=== PATIENT | female | born 1945 | race Caucasian/White ===

== ENCOUNTER 2020-01-17 07:25 | Outpatient (CLI) | payer MEDICARE, SELFPAY ==
--- NOTE | ~2020-01-17 | US_ITS ---
EXAMINATION: US venous doppler LE RT DATE: 01/17/2020 08:05 INDICATION: Right lower limb pain and swelling. TECHNIQUE: Grayscale ultrasound images without and with compression and Doppler ultrasound images of the right lower extremity veins were obtained. COMPARISON: Ultrasound 11/23/2017 FINDINGS: The visualized portions of right common femoral vein, profunda (deep) femoral vein, femoral vein, pop liteal vein, peroneal veins, posterior tibial veins, and greater saphenous vein outflow are patent. IMPRESSION: 1. No deep venous thrombosis. Reviewed, dictated and finalized at location E.
== END 2020-01-17 07:26 | disposition home or self-care (01) ==
PROVIDERS: PCP Family Medicine Adolescent Medicine; Visit Provider Family Medicine Adolescent Medicine
DX: M79.661 Pain in right lower leg (principal)
CPT/HCPCS: 93971

== ENCOUNTER 2020-02-27 00:13 | Emergency (ER) | payer MEDICARE, SELFPAY ==
--- NOTE | ~2020-02-27 | CT_ITS ---
EXAMINATION: CT abdomen pelvis w con EXAM DATE: 02/27/2020 01:33 INDICATION: History diverticulitis, left lower quadrant abdominal pain. TECHNIQUE: Spiral CT of the abdomen and pelvis was performed following intravenous injection of 100 m L Omnipaque 350. Axial, coronal and sagittal images were reviewed. The dose-length product (DLP) fo r this examination was 339.70 mGy-cm. The exposure was tailored according to patient size (auto mA e xposure control), and iterative reconstruction (ASIR) was used as additional dose reduction technique . There is no prior study for comparison. FINDINGS: The liver, spleen, adrenal glands and pancreas are unremarkable. There are gallstones with in an otherwise unremarkable gallbladder, including one which may be in the cystic duct measuring 4 m m. No evidence of obstructive biliary disease. Portal and splenic veins are patent. Kidneys enhanc e symmetrically. There is no hydronephrosis. The uterus is not identified and has likely been surg ically resected. The bladder is unremarkable. There is no retroperitoneal or pelvic lymphadenopathy . The appendix is not positively visualized. There is no pericecal inflammatory change to suggest appe ndicitis. There is moderate-sized gastroesophageal hiatal hernia. There is colonic fluid, correlate for diarrhea. There is possibility of mild sigmoid colitis. There is mild sigmoid colonic diverticul osis. There is no adjacent inflammatory change to suggest diverticulitis. No free intraperitoneal g as. The heart is normal in size. There are no pericardial or pleural effusions. The lung bases ar e unremarkable. There are no osteoblastic or osteolytic lesions identified. Moderate to severe lumba r spondylosis. IMPRESSION: 1. Possible sigmoid mild colitis. Colonic fluid, diarrhea. 2. Mild diverticulosis. 3. Cholelithiasis, probable cystic duct stone but no gallbladder distention. Reviewed, dictated and finalized at location B.
[2020-02-27 00:17] VITALS: BP 135/76; PULSE 87; RESP 18; TEMP 37.6; O2SAT 99
--- NOTE | 2020-02-27 00:31 | ED.ABDPAIN ---
HPI - Abdominal Pain General Chief Complaint: Abdominal Pain Stated Complaint: abd pain Time Seen by Provider: 02/27/20 00:27 Source: patient and EMS Mode of arrival: EMS Limitations: no limitations History of Present Illness HPI narrative: Patient is a 75-year-old female with a history of hypertension, hyperlipidemia, diverticulitis, who presents for evaluation of abdominal pain. Patient states she has pain in her left lower abdomen over the past 24 hours it has become severe and sharp. Patient reports radiation of the pain to the back. She denies fever, nausea, vomiting, chest pain or upper abdominal pain. Patient states she was recently prescribed ciprofloxacin and Flagyl by her primary care physician to treat diverticulitis which she has a history of. Patient states she has finished those prescriptions, but despite taking them, pain flared up yesterday into today. Patient also reports diarrhea throughout the day today, no blood present, no dark or tarry stool. Related Data Home Medications Medication Instructions Recorded Confirmed alprazolam 0.25 mg tablet 0.25 mg PO DAILY 07/03/19 01/22/20 atorvastatin 10 mg tablet 10 mg PO DAILY 07/03/19 01/22/20 escitalopram oxalate 5 mg tablet 5 mg PO DAILY 07/03/19 01/22/20 lisinopril 2.5 mg tablet 2.5 mg PO DAILY 07/03/19 01/22/20 diclofenac sodium 75 mg 75 mg PO BID 01/22/20 01/22/20 tablet,delayed release Allergies Allergy/AdvReac Type Severity Reaction Status Date / Time sulfamethoxazole Allergy Unknown Unknown Verified 02/27/20 00:22 trimethoprim Allergy Unknown Unknown Verified 02/27/20 00:22 Review of Systems Review of Systems: Narrative: CONSTITUTIONAL: Denies fever, chills, or sweats. ENT: Denies rhinorrhea, congestion, sore throat, or otalgia. CARDIOVASCULAR: Denies chest pain, palpitations, or edema. RESPIRATORY: Denies cough or dyspnea. GASTROINTESTINAL: Reports left-sided abdominal pain, denies vomiting, reports diarrhea GENITOURINARY: Denies dysuria or hematuria. SKIN: Denies rash or itching. MUSCULOSKELETAL: Reports left-sided back pain, denies joint pain, or myalgia. NEUROLOGIC: Denies headache, numbness, or weakness. [facility] Past Medical History Medical History Anxiety Depression High cholesterol History of basal cell carcinoma (BCC) Hypertension Surgical History Surgical History History of appendectomy History of knee surgery Left knee arthroscopy 2016 History of rhinoplasty History of tubal ligation Social History Social History Smoking status: Never smoker Alcohol intake: current Additional occupation/education comments: [employer] Gender identity (if verbalized by the patient): Female Exam Narrative: Exam Narrative: GENERAL: Awake, alert, conversant HEAD: Normocephalic, atraumatic. EYES: PERRLA and EOMI. ENT: Nares clear, no rhinorrhea or epistaxis. Mucous membranes moist. NECK: Supple. CHEST: No respiratory distress, breathing even and non labored HEART: Regular rate, sinus rhythm ABDOMEN: Mild distention, positive left lower quadrant tenderness, positive guarding, nonrigid EXTREMITIES: Normal range of motion. No edema. SKIN: Warm, dry, no rash. NEURO:No focal deficits. Alert and oriented x3 Course Vital Signs Vital signs: Vital Signs Temperature 37.6 C 02/27/20 00:17 Pulse Rate 87 02/27/20 00:17 Respiratory Rate 18 02/27/20 00:17 Blood Pressure 135/76 02/27/20 00:17 Pulse Oximetry 99 02/27/20 00:17 Temperature 37.6 C 02/27/20 00:17 Pulse Rate 82 02/27/20 02:12 Respiratory Rate 20 02/27/20 02:12 Blood Pressure 102/59 L 02/27/20 02:12 Pulse Oximetry 96 02/27/20 02:12 MDM - Abdominal Pain MDM Narrative Medical decision making narrative: Patient presented for evaluation of left lower quadrant abdom
[2020-02-27 00:32] LABS: Basophils Percent Auto 0.4 % (0.2-1.2); Eosinophils Absolute Auto 0.1 K/mm3 (0-0.3); Eosinophils Percent Auto 1.3 % (0-4.4); Hemoglobin 12.5 g/dL (12.0-15.0); Immature Granulocyte Absolute 0.02 K/mm3 (0.00-0.031); Immature Granulocyte Percent A 0.2 % (0-0.5); Lymphocytes Absolute Auto 1.77 K/mm3 (0.9-3.2); Lymphocytes Percent Auto 17.1 % (18.3-44.2); Mean Corpuscular HGB Conc 32.9 g/dl (32-36); Mean Corpuscular Hemoglobin 31.8 pg (26-34); Mean Corpuscular Volume 96.7 fl (80-100); Mean Platelet Volume 8.9 fl (7.4-10.4); Monocytes Absolute Auto 0.6 K/mm3 (0.1-0.6); Neutrophils Absolute Auto 7.8 K/mm3 (1.3-6.7); Platelet Count Result 321 k/mm3 (150-375); Red Blood Count 3.93 M/mm3 (4.2-5.4); Red Cell Distribution Width 12.8 % (11.5-14.5); White Blood Count 10.4 K/mm3 (4.5-10.0)
[2020-02-27] MEDS: MORPHINE SULFATE 4 MG/ML INJ IV PUSH (00:37)
[2020-02-27] MEDS: SODIUM CHLORIDE 0.9% IV 1,000 ML 999 ML IV CONT (00:37)
[2020-02-27 00:44] LABS: Alanine Aminotransferase 32 U/L (4-35); Albumin Level 4.3 g/dL (3.5-5.1); Alkaline Phosphatase 69 U/L (38-126); Aspartate Amino Transferase 47 U/L (14-36); Bilirubin,Total 0.5 mg/dL (0.2-1.3); Blood Urea Nitrogen 10 mg/dL (7-17); Calcium 8.8 mg/dL (8.4-10.2); Carbon Dioxide 24 mmol/L (22-30); Chloride 97 mmol/L (98-107); Estimated CRCL calculation 46 ml/min; Estimated Glomerular Filt Rate > 60; Glucose 109 mg/dL (65-105); Lipase 94 U/L (23-300); Potassium 3.7 mmol/L (3.4-5.0); Sodium 132 mmol/L (137-145)
--- NOTE | 2020-02-27 01:02 | PC.NURSE ---
STOOL AND URINE SAMPLE TO LAB AT THIS TIME. WALKED BY ZENON QUEZADA. URINE TUBED. PT CHANGED X2 OUT OF DEPENDS AND ON COMMODE. CALL LIGHT AT BEDSIDE, EDUCATED ON IT WHEN SHE IS READY TO GET OFF COMMODE.
[2020-02-27 01:12] LABS: Add Urine Microscopic? YES; Appearance Urine Clear (Clear); Bacteria Urine Trace /hpf; Bilirubin Urine Negative (Negative); Blood Urine 1+ (Negative); Color Urine Yellow (Yellow); Glucose Urine UA Negative (Negative); Ketones Urine Negative (Negative); Leukocyte Esterase Ur 1+ LEU/UL (Negative); Nitrate Urine Negative (Negative); Protein Urine Negative (Negative); RBC Urine 0-2 /hpf (0-2); Specific Grav Ur 1.011 (1.001-1.035); Squamous Epithelial Cell Urine Occasional /hpf (Few); Urobilinogen Urine Negative mg/dL (<2.0); WBC Urine 0-3 /hpf
--- NOTE | 2020-02-27 01:26 | PC.NURSE ---
Pt currently has been taking down to CT, by
[2020-02-27 02:12] VITALS: BP 102/59; PULSE 82; RESP 20; O2SAT 96
[2020-02-27 02:43] VITALS: BP 102/59; PULSE 72; RESP 18; O2SAT 100
== END 2020-02-27 02:43 | disposition home or self-care (01) ==
PROVIDERS: Emergency Provider Emergency Medicine; PCP Family Medicine Adolescent Medicine
DX: K52.9 Noninfective gastroenteritis and colitis, unspecified (principal); I10 Essential (primary) hypertension; E78.5 Hyperlipidemia, unspecified; F41.9 Anxiety disorder, unspecified; F32.9 Major depressive disorder, single episode, unspecified; Z85.828 Personal history of other malignant neoplasm of skin; K57.90 Diverticulosis of intestine, part unspecified, without perforation or abscess without bleeding; K80.20 Calculus of gallbladder without cholecystitis without obstruction
CPT/HCPCS: 36415; 74177; 80053; 81001; 83690; 85025; 87324; 96361; 96374; 99284; J2270; J7030; Q9967

== ENCOUNTER → 2020-09-03 14:33 | Outpatient (CLI) | payer MEDICARE, SELFPAY ==
--- NOTE | ~2020-09-03 | XR_ITS ---
XR finger 3rd LT min 2V DATE: 09/03/2020 14:47 INDICATION: Crush injury, left proximal phalanx pain TECHNIQUE: 4 views COMPARISON: None FINDINGS: No fracture or dislocation, periosteal reaction or bone destruction, radiopaque soft tissue foreign body or subcutaneous emphysema. IMPRESSION: No fracture or dislocation Reviewed, dictated and finalized at location B. 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
== END ==
PROVIDERS: PCP Family Medicine Adolescent Medicine; Visit Provider Physician Assistant
DX: M79.645 Pain in left finger(s) (principal)
CPT/HCPCS: 73140

== ENCOUNTER 2021-01-21 09:30 | Outpatient (RCR) | payer MEDICARE, SELFPAY ==
--- NOTE | 2020-12-24 09:13 | OTOPEVAL ---
OCCUPATIONAL THERAPY INITIAL EVALUATION: 12/24/2020 Thank you for referring Gricelda Sawant to [facility] [place][Note 2].? The patient is scheduled to be seen for skilled occupational therapy? 2x/week for 4 weeks. Please review, sign, date and return this plan of care BISHOP. I agree with and certify that the following plan of care is medically necessary. Referring Physician Date Attending Provider: Jayson Miranda MD *OT Outpatient Evaluation Start: 12/24/20 07:39 Freq: Status: Active Protocol: Document 12/24/20 07:55 KJL (Rec: 12/24/20 09:13 KJL [email or web address]) Therapy Assessment Status Assessment Status Assessment Status Evaluation Evaluation Information Problem Onset September 03, 2020 Additional Evaluation Detail Patient reports on September 03, 2020 picked up a box of cat litter and dropped it reaching L hand out to catch the box and it bent L long finger back resulting in pain and bruising. There is no acute fracture or dislocation of L long finger. Subjective Information Patient reports is left handed Query Text:As Reported By Patient/ and many daily tasks have Family been difficult to perform including opening doors, drawers, writing, gripping/ grasping items with dominant hand since finger has been injured. Patient reports since being prescribed medication at MD last week, finger has decreased pain from 10/10 at the highest to 4/10 at the highest. Prior Level of Function Activity Level (Last 3 Months) Occupation [employer] Dominance Left Activity of Daily Living Ability Independent Indoor/Home Mobility Independent Community Mobility Independent Stairs Ability Independent Functional Cognition (Planning, Shopping Independent , Taking Medications) Cooking Yes Cleaning Yes Laundry Yes Shopping Yes Driving Yes Home Setting Home Type House,Single Level Environmental Barriers Stairs, Greater than 4 Living Situation Alone Support Available Local Family Support Mobility Assistive Devices (Used Last 3 None Months)
--- NOTE | 2021-01-21 10:13 | OTOPEVAL ---
OCCUPATIONAL THERAPY RE-EVALUATION AND D/C NOTE 01/21/21 Patient presents for outpatient OT re-evaluation following 6 sessions for left middle finger stiffness, weakness, and pain. ROM and strength have made excellent progress since the SOC which has facilitated return to use for ADL and work tasks with little to no pain. At this time the patient is ready for discharge with HEP to continue to work on strengthening and ROM of the left hand. Thank you for referring Gricelda Sawant to [facility].? Please review, sign, date and return this D/C Note BISHOP. I agree with and certify that the following plan of care is medically necessary. Referring Physician Date Referring Provider: Jayson Miranda MD *OT Outpatient Evaluation Start: 12/24/20 07:39 Freq: Status: Active Protocol: Document 01/21/21 09:28 BRAYAN (Rec: 01/21/21 09:58 BRAYAN [email or web address]) Therapy Assessment Status Assessment Status Assessment Status Re-evaluation Evaluation Information Problem Diagnosis Left middle finger stiffness Onset September 03, 2020 Additional Evaluation Detail Patient has participated in 6 outpatient OT sessions since . OT has been focusing on pain management, ROM, and strengthening. She is currently independent with all HEPs. Subjective Information Patient reports that she has Query Text:As Reported By Patient/ less pain and more functional Family use of the hand for ADL and work tasks. She reports improved ability to open drawers and write without pain or difficulty. 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 Patient reports that her ROM and putty exercises are more comfortable, rating pain at 2/ 10. She does report her pain gets down to 0/10 at rest. Pain Assessment Timing of Pain Assessment Timing of Pain Assessment Re-assessment Pain Scale Pain Scale Used Numeric (1 - 10) Self Report Pain Assessment Left Finger, Middle Reported Pain Level 0 Lowest Pain Intensity 0 Greatest Pain Intensity 4 Pain Score Pain Score 0: Self Report Upper Extremity Range of Motion Finger Range of Motion Left Reason Not Measured WNL/Right Mid
== END 2021-01-21 11:05 | disposition home or self-care (01) ==
LOC: ANHOT 09:30
PROVIDERS: PCP Family Medicine Adolescent Medicine; Visit Provider Orthopaedic Surgery
DX: M25.642 Stiffness of left hand, not elsewhere classified (principal)
CPT/HCPCS: 97018; 97035; 97110; 97140; 97165

== ENCOUNTER → 2021-02-04 16:42 | Outpatient (CLI) | payer MEDICARE, SELFPAY ==
--- NOTE | ~2021-02-04 | MM_ITS ---
EXAMINATION: MM screening [place] BI w rashmi HISTORY: Screening mammogram TECHNIQUE: Craniocaudal and mediolateral oblique 3-D tomosynthesis images were obtained and synthetic 2-D images were generated. CAD analysis was submitted and interpreted. COMPARISON: 05/24/2018, 09/04/2015 bilateral digital screening mammogram examinations BREAST PARENCHYMAL COMPOSITION: There are scattered areas of fibroglandular density. FINDINGS: Bilateral axillary tail lymph nodes. Scattered bilateral benign calcifications. There is no evidence of suspicious mass, calcification, or architectural distortion to suggest malignancy in eit her breast. There has been no suspicious interval change. IMPRESSION: 1. No mammographic evidence of malignancy. 2. Recommend routine screening mammography in one year. BI-RADS Category 2: Benign finding(s). Reviewed, dictated and finalized at location A.
== END ==
PROVIDERS: PCP Family Medicine Adolescent Medicine; Visit Provider Family Medicine Adolescent Medicine
DX: Z12.31 Encounter for screening mammogram for malignant neoplasm of breast (principal)
CPT/HCPCS: 77063; 77067

== ENCOUNTER 2021-06-29 21:31 | Observation (INO) | payer MEDICARE, SELFPAY ==
--- NOTE | ~2021-06-29 | US_ITS ---
EXAMINATION: US venous doppler LE EXAM DATE: 06/30/2021 10:09 INDICATION: Left leg pain and swelling. TECHNIQUE: Multiple grayscale, color flow and Doppler images of the lower extremity deep venous syste ms bilaterally were obtained and reviewed. Comparison is made to prior examination from 01/07/2020. FINDINGS: RIGHT SIDE Common femoral: -------- Normal. Profunda femoral: ------- Normal. Femoral: Normal. Popliteal: Normal. Posterior tibial: --------- Normal. Peroneal: Normal. Gastrocnemius: Not visualized. Soleus: Not visualized. Greater saphenous: ----- Normal. Lesser saphenous: ------ Not visualized. LEFT SIDE Common femoral: --------Thrombosed. Profunda femoral: -------Thrombosed. Femoral: Thrombosed. Popliteal: Thrombosed. Posterior tibial: ---------Thrombosed. Peroneal: Thrombosed. Gastrocnemius: Thrombosed. Soleus: Not visualized. Greater saphenous: ----- Normal. Lesser saphenous: ------ Not visualized. IMPRESSION: 1. Extensive left lower extremity DVT. 2. No right DVT. I discussed DVT with Nithya Emery MD at 06/30/2021 10:13 CDT. Reviewed, dictated and finalized at location A.
--- NOTE | ~2021-06-29 | CT_ITS ---
EXAMINATION: CTA [facility] DATE: 06/29/2021 23:12 INDICATION: Absent pulses in the left lower limb TECHNIQUE: Computed tomographic angiography (CTA) of the left lower extremity was performed with 150 mL Omnipaque 350 intravenous contrast. The dose-length product was mGy-cm. COMPARISON: None. FINDINGS: Small amount of atherosclerotic plaque with mild (<50%) stenosis at the left common femoral and popli teal arteries. Negligible plaque along the intervening left femoral artery. There is mild stenosis at the proximal anterior tibial artery runoff below the ankle. The posterior tibial artery is atretic t hroughout its course becoming indiscernible short distance above the ankle. The peroneal artery which is large in caliber throughout its course than the anterior tibial artery demonstrates runoff below the ankle where it appears to supply the distal posterior tibial artery below the level of the ankle. There is diffuse subcutaneous edema throughout the left lower limb. Mild diverticulosis along the vi sualized portion of the sigmoid colon. Bladder and visualized portion of the uterus are unremarkable. No free fluid in the pelvis. No pathologically enlarged left inguinal or left pelvic lymphadenopathy . Left posterior acetabular bone island. Bones are otherwise unremarkable. IMPRESSION: 1. Two-vessel runoff below the ankle with the larger peroneal artery providing supply to the level o f the ankle to the diffusely markedly atretic left posterior tibial artery. 2. Otherwise minimal to mild atherosclerotic disease primarily at the left common femoral, popliteal and proximal anterior tibial arteries. Reviewed, dictated and finalized at location A. IMPRESSION: 1. 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 2. Otherwise minimal to mild atherosclerotic disease primarily at the left comm on femoral, popliteal and proximal anterior tibial arteries.
--- NOTE | ~2021-06-29 | CT_ITS ---
EXAMINATION: CTA chest PE protocol DATE: 06/29/2021 23:58 INDICATION: Shortness of breath TECHNIQUE: Computed tomography angiography (CTA) of the chest was performed with 100 mL Omnipaque-350 intravenous contrast timed to evaluate the pulmonary arteries. Coronal maximum intensity projection 3D-reconstructions were created by the technologist. Automated exposure control and iterative reconst ruction technique were employed. Exam dose: 393.10 mGy-cm total exam DLP. COMPARISON: 01/26/2016 CT pulmonary scan FINDINGS: There is diagnostic contrast enhancement of the pulmonary arteries and no evidence of pulmo nary embolism. Normal heart size. There is coronary artery calcification. No pericardial or pleural effusion. No thoracic aortic aneurysm or dissection. 3.5 mm left apical soft tissue nodule. There is left posterior basilar lower lobe atelectasis or scarring. There is minimal bilateral lower lobe dependent atelectasis otherwise. No pulmonary consolidation. There is a small sliding hiatal hernia. There are numerous stones in the dependent aspect of the gallbladder. Normal morphology of the adrenal glands. Degenerative changes of the thoracic and lumbar spine. No suspicious osteolytic or osteoblastic lesio ns. IMPRESSION: No evidence of pulmonary embolism Mild atelectasis in the lower lobes, left greater than right Cholelithiasis Small sliding hiatal hernia Reviewed, dictated and finalized at Location A. Reviewed, dictated and finalized at location A.
[2021-06-29 21:46] VITALS: BP 152/97; PULSE 104; RESP 22; TEMP 37.1; O2SAT 100
[2021-06-29 22:17] VITALS: BP 135/93; PULSE 79; RESP 28; TEMP 36.8; O2SAT 99
--- NOTE | 2021-06-29 22:25 | ECG_ITS ---
Measurements Intervals [place] Rate: 73 P: 63 AL: 157 QRS: 31 QRSD: 97 T: 40 QT: 387 QTc: 427 Interpretive Statements SINUS RHYTHM BASELINE ARTIFACT- I, II, III, AVR, AVL, AVF, V1-V2 NORMAL ECG Electronically Signed On 06-30-2021 6:43:16 CDT by Alfonzo Wall D.O.
--- NOTE | 2021-06-29 22:30 | ED.LOWEXIN ---
HPI - Extremity Injury (Lower) General Chief Complaint: Extremity Injury, Lower Stated Complaint: L leg swelling/pain Time Seen by Provider: 06/29/21 22:14 Source: patient Mode of arrival: ambulatory Limitations: no limitations History of Present Illness HPI Narrative: 76-year-old female history of hypertension, arthritis, and high cholesterol with a DVT in the past arrives complaining of left lower extremity pain numbness and swelling worsened since this morning. 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 However the pain swelling and discoloration became much worse as the day went by and she was try to ambulate. Patient arrives with a left lower extremity swelling to the mid thigh dusky, tender with no DP pulse or pulses palpable. Patient also complains of chest pain worse with inspiration. Patient states history of DVT in the past also PE in the past. She states no history of PVD no CAD not currently on blood thinners. Related Data Home Medications Medication Instructions Recorded Confirmed alprazolam 0.25 mg tablet 0.25 mg PO DAILY 07/03/19 01/27/21 atorvastatin 10 mg tablet 10 mg PO DAILY 07/03/19 01/27/21 escitalopram oxalate 5 mg tablet 5 mg PO DAILY 07/03/19 01/27/21 lisinopril 2.5 mg tablet 2.5 mg PO DAILY 07/03/19 01/27/21 Allergies Allergy/AdvReac Type Severity Reaction Status Date / Time sulfamethoxazole Allergy Unknown Unknown Verified 06/29/21 22:48 trimethoprim Allergy Unknown Unknown Verified 06/29/21 22:48 Review of Systems Review of Systems: CONSTITUTIONAL: no fever, no weight loss, no confusion EYES: no vision changes, no eye pain ENT: no rhinorrhea, no sore throat, no difficulty swallowing CARDIOVASCULAR: pleuritic chest pain, chest pain, LLE edema, pain, discoloration, no palpitations RESPIRATORY: no cough, no shortness of breath, no hemoptysis GASTROINTESTINAL: no abdominal pain, no nausea, no vomiting, no diarrhea GENITOURINARY: no flank pain, no dysuria, no hematuria SKIN: no rash, no jaundice MUSCULOSKELETAL: no back pain, no trauma. NEUROLOGIC: No headache, no dizziness, no focal weakness PSYCHIATRIC: No hallucinations, no suicidal ideation PMFSH Past Medical History Medical History (Updated 06/30/21 @ 04:21 by Gaby Camacho MD) Anxiety BMI 23.0-23.9, adult Depression High cholesterol History of basal cell carcinoma (BCC) Hypertension Surgical History Surgical History History of appendectomy History of knee surgery Left knee arthroscopy 2016 History of rhinoplasty History of tubal ligation Family History Family History Mother Family history of heart disease in male family member before age 55 Father Family history of heart disease in male family member before age 55 Social History Social History Smoking status: Never smoker Alcohol intake: current Additional occupation/education comments: [employer] Gender identity (if verbalized by the patient): Female Exam Narrative: General: alert, afebrile, answering all questions appropriately Head: normocephalic, atraumatic Eyes: EOMI bilaterally, anicteric, no injection ENT: moist mucous membranes, oropharynx patent, no rhinorrhea Neck: supple, trachea midline, no JVD Chest: equal chest rise bilaterally, no chest wall trauma noted Lungs: clear to auscultation bilaterally, respirations labored CV: regular rate, no EZIO B, calf size equal bilaterally Abd: soft, non-distended, non-tender, no rebound, no gaurding, negative Acevedo's : no CVA tenderness B, bladder non-distended Back: no lumbar bony tenderness. 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
--- NOTE | 2021-06-29 22:43 | PC.NURSE ---
Access obtained by RN. ALO Matthew aware
[2021-06-29] MEDS: fentaNYL CITRATE INJ (*CRX) 100 MCG/2 ML VIAL 50 MCG IV PUSH (22:44)
[2021-06-29] MEDS: SODIUM CHLORIDE 0.9% IV 1,000 ML 999 ML IV CONT (22:44)
[2021-06-29 22:52] LABS: Basophils Percent Auto 0.2 % (0.2-1.2); Eosinophils Absolute Auto 0.3 K/mm3 (0-0.3); Eosinophils Percent Auto 2.2 % (0-4.4); Hematocrit 38.9 % (37.0-47.0); Hemoglobin 12.7 g/dL (12.0-15.0); Immature Granulocyte Absolute 0.04 K/mm3 (0.00-0.031); Immature Granulocyte Percent A 0.3 % (0-0.5); Lymphocytes Absolute Auto 2.63 K/mm3 (0.9-3.2); Lymphocytes Percent Auto 21.6 % (18.3-44.2); Mean Corpuscular HGB Conc 32.6 g/dl (32-36); Mean Corpuscular Hemoglobin 32.7 pg (26-34); Mean Corpuscular Volume 100.3 fl (80-100); Mean Platelet Volume 8.9 fl (7.4-10.4); Monocytes Percent Auto 8.2 % (2.6-8.5); Neutrophils Absolute Auto 8.2 K/mm3 (1.3-6.7); Neutrophils Percent Auto 67.5 % (45.5-73.1); Platelet Count Result 276 k/mm3 (150-375); Red Blood Count 3.88 M/mm3 (4.2-5.4); Red Cell Distribution Width 13.1 % (11.5-14.5); White Blood Count 12.2 K/mm3 (4.5-10.0)
[2021-06-29 23:06] LABS: INR 0.9; Prothrombin Time 12.1 Seconds (11.1-14.7)
[2021-06-29 23:07] LABS: Partial Thromboplastin Time 25.2 SECONDS (22.3-36.8)
--- NOTE | 2021-06-29 23:15 | PC.NURSE ---
Pt had episode where her teeth began to chatter, and her whole body shivered. Pt encouraged to breathe, vitals remained stable. MD aware. Pt able to calm down and returned to normal. Extremity elevated, cold cloth on head, and positive reinforcement. No new orders at this time. Of note, patient received Pfizer COVID booster today. States leg was red and had pain prior to receiving booster. aware.
[2021-06-29 23:35] LABS: Troponin I < 0.012 ng/mL (0.000-0.034)
[2021-06-29 23:43] LABS: Alanine Aminotransferase 26 U/L (4-35); Albumin Level 4.9 g/dL (3.5-5.1); Alkaline Phosphatase 75 U/L (38-126); Anion Gap 13 mmol/L (8-16); Aspartate Amino Transferase 41 U/L (14-36); Bilirubin,Total 1.1 mg/dL (0.2-1.3); Blood Urea Nitrogen 20 mg/dL (7-17); Calcium 9.9 mg/dL (8.4-10.2); Carbon Dioxide 25 mmol/L (22-30); Chloride 104 mmol/L (98-107); Estimated CRCL calculation 36 ml/min; Estimated Glomerular Filt Rate 49; Glucose 119 mg/dL (65-110); Lipase 106 U/L (23-300); Potassium 5.2 mmol/L (3.4-5.0); Sodium 142 mmol/L (137-145)
[2021-06-30] VITALS (19 sets, daily range): BP systolic 99–139; BP diastolic 62–85; PULSE 65–86; RESP 13–24; TEMP 36.1–37; O2SAT 94–99
[2021-06-30] MEDS: LACTATED RINGERS 1,000 ML 999 ML IV CONT (00:03)
[2021-06-30] MEDS: HEPARIN SODIUM 5,000 UNITS/ML VIAL 5500 UNITS IV PUSH (00:47)
[2021-06-30 01:45] LABS: Reflex Lactic Acid Yes or No Add Lactic
[2021-06-30] MEDS: HEPARIN SOD/D5W 100 UNITS/ML 25,000 UNITS/250 ML BAG 12 UNITS IV CONT ×2 (01:47→21:48)
[2021-06-30 02:08] LABS: Add Urine Microscopic? YES; Appearance Urine Clear (Clear); Bilirubin Urine Negative (Negative); Blood Urine Negative (Negative); Color Urine Straw (Yellow); Glucose Urine UA Negative (Negative); Ketones Urine Negative (Negative); Leukocyte Esterase Ur Trace LEU/UL (Negative); Mucus Urine Rare /lpf; Nitrate Urine Negative (Negative); Protein Urine Negative (Negative); RBC Urine 0-2 /hpf (0-2); Squamous Epithelial Cell Urine Moderate /hpf (Few); Urobilinogen Urine Negative mg/dL (<2.0)
[2021-06-30 02:09] LABS: Specific Grav Ur 1.058 (1.001-1.035)
[2021-06-30 02:09] LABS: Lactic Acid 2.1 mmol/L (0.7-2.1)
--- NOTE | 2021-06-30 05:01 | ADMGEN ---
This patient, Gricelda Sawant, was admitted to IMU Room 212-01. Patient/family oriented to hospital policies and general routines including ID bracelet, bed and alarms, visiting hours, pain management, procedures, bathroom and other care routines, personal items, smoking policy, room service/diet, and visiting hours. Information on how to activate the Rapid Response Team has been discussed. Patient/Family are encouraged to report perceived risks to care and to ask questions if they do not understand what they are told or what they should do.
[2021-06-30 06:05] LABS: Basophils Percent Auto 0.3 % (0.2-1.2); Eosinophils Absolute Auto 0.3 K/mm3 (0-0.3); Hematocrit 33.6 % (37.0-47.0); Immature Granulocyte Absolute 0.04 K/mm3 (0.00-0.031); Immature Granulocyte Percent A 0.4 % (0-0.5); Lymphocytes Absolute Auto 3.08 K/mm3 (0.9-3.2); Lymphocytes Percent Auto 33.2 % (18.3-44.2); Mean Corpuscular HGB Conc 32.7 g/dl (32-36); Mean Corpuscular Hemoglobin 32.6 pg (26-34); Mean Corpuscular Volume 99.7 fl (80-100); Mean Platelet Volume 8.9 fl (7.4-10.4); Monocytes Absolute Auto 0.8 K/mm3 (0.1-0.6); Monocytes Percent Auto 8.7 % (2.6-8.5); Neutrophils Percent Auto 54.4 % (45.5-73.1); Platelet Count Result 223 k/mm3 (150-375); Red Blood Count 3.37 M/mm3 (4.2-5.4); White Blood Count 9.3 K/mm3 (4.5-10.0)
[2021-06-30 06:11] LABS: Prothrombin Time 13.2 Seconds (11.1-14.7)
[2021-06-30 06:13] LABS: Partial Thromboplastin Time 81.5 SECONDS (22.3-36.8)
[2021-06-30 08:57] LABS: Lactic Acid Reflex 1.7 mmol/L (0.7-2.1)
[2021-06-30 08:59] LABS: Alanine Aminotransferase 21 U/L (4-35); Alkaline Phosphatase 80 U/L (38-126); Anion Gap 7 mmol/L (8-16); Aspartate Amino Transferase 25 U/L (14-36); Bilirubin,Total 0.9 mg/dL (0.2-1.3); Blood Urea Nitrogen 14 mg/dL (7-17); Calcium 9.2 mg/dL (8.4-10.2); Carbon Dioxide 25 mmol/L (22-30); Chloride 105 mmol/L (98-107); Estimated CRCL calculation 48 ml/min; Estimated Glomerular Filt Rate > 60; Glucose 114 mg/dL (65-110); Potassium 3.9 mmol/L (3.4-5.0); Sodium 137 mmol/L (137-145)
[2021-06-30] MEDS: ATORVASTATIN 10 MG TABLET PO (09:08)
[2021-06-30] MEDS: ESCITALOPRAM OXALATE 10 MG TABLET 20 MG PO (09:08)
[2021-06-30] MEDS: MORPHINE SULFATE (*CRX) 2 MG/ML INJ 1 MG IV PUSH (10:35)
--- NOTE | 2021-06-30 12:46 | PM.IMHP ---
H&P: HPI History of Present Illness Date/Time: 06/30/21 12:46 Chief Complaint: Left lower extremity swelling Narrative: 76-year-old female with past medical history significant for hypertension, hyperlipidemia and arthritis with a prior history of provoked left lower extremity DVT post orthopedic surgery, presented with left lower extremity swelling and tenderness for the past 2 days. Patient reports that she was working in her backyard Monday when she thinks she may have overworked herself busy and started experiencing some pain in her left calf. She proceeded on to go to work the next day however when she came back home Monday she started experiencing worsening swelling and pain over the left lower extremity. Her job involves standing or sitting for long periods of time. She has not had any long drives or long airplane travels recently. He has not gone to any sort of surgery she has not had any family history of any such disorder as well. She is not on any blood thinners. She denies any fever, chills, nausea, vomiting, shortness of breath, chest pain. In the ED a CT angio was done of the chest which did not reveal any findings for PE. Review of Systems Review of Systems: Ten point review systems conducted was otherwise negative [facility] Past Medical History Medical History (Updated 06/30/21 @ 13:05 by Nithya Emery MD) Anxiety BMI 23.0-23.9, adult Depression High cholesterol History of basal cell carcinoma (BCC) Hypertension Surgical History Surgical History History of appendectomy History of knee surgery Left knee arthroscopy 2016 History of rhinoplasty History of tubal ligation Family History Family History Mother Family history of heart disease in male family member before age 55 Thyroid disease Father Family history of heart disease in male family member before age 55 Sibling Graves disease Hypercholesteremia Heart disease Social History Social History Smoking status: Never smoker Alcohol intake: current Drinks per week: 1 Substance use: never Additional occupation/education comments: [employer] Gender identity (if verbalized by the patient): Female Spiritual care concerns: No Meds Home Medications and Allergies Home Medications Medication Instructions Recorded Confirmed Type alprazolam 0.25 mg tablet 0.5 mg PO HS 07/03/19 06/30/21 History atorvastatin 10 mg tablet 10 mg PO DAILY 07/03/19 06/30/21 History escitalopram oxalate 5 mg tablet 20 mg PO DAILY 07/03/19 06/30/21 History lisinopril 2.5 mg tablet 10 mg PO DAILY 07/03/19 06/30/21 History Allergies Allergy/AdvReac Type Severity Reaction Status Date / Time sulfamethoxazole Allergy Unknown Unknown Verified 06/29/21 22:48 trimethoprim Allergy Unknown Unknown Verified 06/29/21 22:48 Vital Signs Vital Signs - 24 hr 06/29/21 21:46 06/29/21 22:17 06/30/21 00:02 Temperature 98.8 F 98.2 F Pulse Rate 104 H 79 79 Respiratory Rate 22 H 28 H 17 Blood Pressure 152/97 H 135/93 H 99/85 L Pulse Oximetry 100 99 98 06/30/21 01:34 06/30/21 04:15 06/30/21 05:17 Temperature 98.4 F Pulse Rate 76 71 66 Respiratory Rate 16 13 18 Blood Pressure 109/62 107/62 139/69 Pulse Oximetry 96 96 99 06/30/21 06:00 06/30/21 08:08 06/30/21 12:23 Temperature 97.0 F L 98.6 F Pulse Rate 65 71 79 Respiratory Rate 24 H 18 Blood Pressure 111/62 128/71 Pulse Oximetry 97 96 Exam Narrative: General: alert, afebrile Head: normocephalic, atraumatic Eyes: EOMI bilaterally, anicteric ENT: moist mucous membranes, oropharynx patent, no rhinorrhea Neck: supple, trachea midline, no JVD Chest: equal chest rise bilaterally, no chest wall trauma noted Lungs: clear to auscultation bilaterally, respirations labored CV: regular rate, no EZIO B
[2021-06-30 13:26] LABS: Partial Thromboplastin Time 74.5 SECONDS (22.3-36.8)
[2021-06-30] MEDS: HYDROcodone/acetaminophen (*CRX) 5-325 MG TABLET 1 TAB PO ×2 (16:30→22:18)
[2021-06-30] MEDS: ALPRAZolam (*CRX) 0.5 MG TABLET PO (22:17)
--- NOTE | 2021-06-30 23:26 | PC.NURSE ---
I called daughter, Charisse, and let her know that her mother will be transferred to [facility] at approximately 2330 tonight. All questions answered.
--- NOTE | 2021-06-30 23:51 | PC.NURSE ---
Report called to Kesha HERNANDEZ at [facility]. Awaiting on ambulance for transport. Their ETA was 2330.
[2021-07-01] VITALS: BP 123/75; PULSE 76; PULSE 79; RESP 18; TEMP 36.6; O2SAT 95
--- NOTE | 2021-07-01 00:28 | PC.NURSE ---
EMS here for transport to [facility].
--- NOTE | 2021-07-18 23:11 | PM.TDS ---
Transfer Discharge Sum: Prov Provider Date of admission: 06/30/21 10:09 Primary care physician: Brain Overton MD Admitting clinician: Sadia Talavera MD Attending physician on admission: Nithya Emery Attending physician on discharge: Nithya Emery Discharging clinician: Nithya Emery DS: Admitting Diagnosis Discharge Date 07/01/21 Admitting Diagnosis Leg pain DS: Discharge Diagnosis Discharge Diagnosis (1) SALENA (acute kidney injury): Code(s): N17.9 - Acute kidney failure, unspecified Status: Resolved (2) Lactic acidosis: Code(s): E87.2 - Acidosis Status: Resolved (3) Elevated levels of transaminase & lactic acid dehydrogenase: Code(s): R74.01 - Elevation of levels of liver transaminase levels; R74.02 - Elevation of levels of lactic acid dehydrogenase [LDH] Status: Resolved (4) DVT (deep venous thrombosis): Qualifiers: Affected thrombotic vein of extremity: unspecified vein of extremity Chronicity: acute DVT location: lower extremity Laterality: left Qualified Code(s): I82.402 - Acute embolism and thrombosis of unspecified deep veins of left lower extremity Code(s): I82.409 - Acute embolism and thrombosis of unspecified deep veins of unspecified lower extremity Status: Acute Transfer Discharge Sum: Med Medications Active and Home Medications: Home Medications alprazolam 0.25 mg tablet 0.5 mg PO HS 07/03/19 [History Confirmed 06/30/21] atorvastatin 10 mg tablet 10 mg PO DAILY 07/03/19 [History Confirmed 06/30/21] escitalopram oxalate 5 mg tablet 20 mg PO DAILY 07/03/19 [History Confirmed 06/30/21] lisinopril 2.5 mg tablet 10 mg PO DAILY 07/03/19 [History Confirmed 06/30/21] alprazolam 0.5 mg PO HS tablet 07/01/21 [Rx] atorvastatin 10 mg PO DAILY tablet 07/01/21 [Rx] heparin (porcine) in 5 % dex 25,000 units CONTINUOUS IV INFUSION .[id number] ml 07/01/21 [Rx] Transfer Discharge Sum: Hosp Hospital Course Hospital course: 76-year-old female with past medical history significant for hypertension, hyperlipidemia and arthritis with a prior history of provoked left lower extremity DVT post orthopedic surgery, presented with left lower extremity swelling and tenderness for the past 2 days. Doppler ultrasound of the left lower extremity revealed extensive thrombosis. Spoke with vascular surgery attending Dr. Aguayo at [facility] and have accepted the patient to be transferred to vascular surgery. As per Dr. Du patient would need thrombectomy and is unlikely to get better on its own. Patient was continued heparin drip in the interim. Patient was transferred for higher level of care. Time Spent with Patient Time attestation: Total time spent providing and/or coordinating transfer services: Total time spent: Greater than 30 minutes Exam Narrative: General: alert, afebrile Head: normocephalic, atraumatic Eyes: EOMI bilaterally, anicteric ENT: moist mucous membranes, oropharynx patent, no rhinorrhea Neck: supple, trachea midline, no JVD Chest: equal chest rise bilaterally, no chest wall trauma noted Lungs: clear to auscultation bilaterally, respirations labored CV: regular rate, no EZIO B, calf size equal bilaterally Abd: soft, non-distended, non-tender, no rebound, no gaurding, negative Acevedo's : no CVA tenderness B, bladder non-distended Back: no lumbar bony tenderness. paraspinal muscles without spasm EXT: L lower ext: skin intact, swollen, erythematous, dusky from foot to mid thigh DP 1+ PT LIVESTOCK COUNTER; femoral 2+ bounding; no crepitus; APROM intact, no deformity Skin: warm, dry, no pallor Neuro: alert, oriented x 3; CN 2-12 grossly intact, no dysarthria Psych: Teary, appears upset.
== END 2021-07-01 00:15 | disposition short-term general hospital (02) ==
LOC: ANHED 06-30 00:47 → ANHIMU 06-30 07:23
PROVIDERS: Admitting Provider Internal Medicine; Emergency Provider Emergency Medicine; PCP Family Medicine Adolescent Medicine; Visit Provider Internal Medicine
DX: I82.402 Acute embolism and thrombosis of unspecified deep veins of left lower extremity (principal); M79.605 Pain in left leg; I10 Essential (primary) hypertension; E78.00 Pure hypercholesterolemia, unspecified; M19.90 Unspecified osteoarthritis, unspecified site; I73.9 Peripheral vascular disease, unspecified; R06.02 Shortness of breath; E78.5 Hyperlipidemia, unspecified; Z86.718 Personal history of other venous thrombosis and embolism; Z86.711 Personal history of pulmonary embolism
CPT/HCPCS: 36415; 71275; 73706; 80053; 81001; 83605; 83690; 83735; 84484; 85025; 85610; 85730; 93005; 93970; 96361; 96365; 96366; 96375; 99285; A9270; G0378; J1644; J2270; J3010; J7030; J7120; Q9967

== ENCOUNTER 2021-07-19 10:30 | Outpatient (CLI) | payer MEDICARE, SELFPAY ==
[2021-07-19 14:45] LABS: INR 3.3; Prothrombin Time 32.8 Seconds (11.1-14.7)
== END 2021-07-19 10:31 | disposition home or self-care (01) ==
LOC: ANHWCLAB 10:33
PROVIDERS: PCP Family Medicine Adolescent Medicine
DX: M79.605 Pain in left leg (principal)
CPT/HCPCS: 36415; 85610

== ENCOUNTER 2021-07-26 09:56 | Outpatient (CLI) | payer MEDICARE, SELFPAY ==
[2021-07-26 13:26] LABS: Hemoglobin 10.9 g/dL (12.0-15.0); Mean Corpuscular HGB Conc 32.1 g/dl (32-36); Mean Corpuscular Hemoglobin 32.1 pg (26-34); Mean Platelet Volume 9.5 fl (7.4-10.4); Platelet Count Result 425 k/mm3 (150-375); Red Cell Distribution Width 13.5 % (11.5-14.5); White Blood Count 6.4 K/mm3 (4.5-10.0)
[2021-07-26 13:34] LABS: Alanine Aminotransferase 23 U/L (4-35); Albumin Level 4.5 g/dL (3.5-5.1); Alkaline Phosphatase 80 U/L (38-126); Anion Gap 12 mmol/L (8-16); Aspartate Amino Transferase 24 U/L (14-36); Bilirubin,Total 0.4 mg/dL (0.2-1.3); Blood Urea Nitrogen 14 mg/dL (7-17); Calcium 9.9 mg/dL (8.4-10.2); Carbon Dioxide 22 mmol/L (22-30); Chloride 101 mmol/L (98-107); Estimated Glomerular Filt Rate > 60; Glucose 93 mg/dL (65-110); Potassium 4.5 mmol/L (3.4-5.0); Sodium 135 mmol/L (137-145)
[2021-07-26 13:37] LABS: INR 2.6; Prothrombin Time 27.5 Seconds (11.1-14.7)
== END 2021-07-26 09:57 | disposition home or self-care (01) ==
PROVIDERS: PCP Family Medicine Adolescent Medicine; Referring Provider Family Medicine Adolescent Medicine; Visit Provider Family Medicine Adolescent Medicine
DX: I82.412 Acute embolism and thrombosis of left femoral vein (principal)
CPT/HCPCS: 36415; 80053; 85027; 85610

== ENCOUNTER 2021-09-13 10:16 | Outpatient (RCR) | payer MEDICARE, SELFPAY ==
[2021-07-17 10:59] LABS: INR 2.9; Prothrombin Time 29.4 Seconds (11.1-14.7)
[2021-08-05 13:28] LABS: INR 2.5; Prothrombin Time 26.6 Seconds (11.1-14.7)
[2021-09-13 13:48] LABS: INR 2.4; Prothrombin Time 25.3 Seconds (11.1-14.7)
== END 2021-10-15 23:59 | disposition home or self-care (01) ==
LOC: ANHWCLAB 10:16
PROVIDERS: PCP Family Medicine Adolescent Medicine; Visit Provider Family Medicine Adolescent Medicine
DX: M79.605 Pain in left leg (principal)
CPT/HCPCS: 36415; 85610

== ENCOUNTER 2021-09-21 10:16 | Outpatient (CLI) | payer MEDICARE, SELFPAY ==
[2021-09-21 16:19] LABS: Hematocrit 37.8 % (37.0-47.0); Hemoglobin 12.1 g/dL (12.0-15.0); Mean Corpuscular Hemoglobin 31.9 pg (26-34); Mean Corpuscular Volume 99.7 fl (80-100); Mean Platelet Volume 9.4 fl (7.4-10.4); Platelet Count Result 329 k/mm3 (150-375); Red Blood Count 3.79 M/mm3 (4.2-5.4); Red Cell Distribution Width 13.9 % (11.5-14.5); White Blood Count 5.8 K/mm3 (4.5-10.0)
== END 2021-09-21 10:17 | disposition home or self-care (01) ==
LOC: ANHWCLAB 10:18
PROVIDERS: PCP Family Medicine Adolescent Medicine; Visit Provider Physician Assistant
DX: R06.02 Shortness of breath (principal)
CPT/HCPCS: 36415; 85027

== ENCOUNTER 2021-11-19 10:07 | Outpatient (RCR) | payer MEDICARE, SELFPAY ==
[2021-08-25 16:31] LABS: INR 3.1; Prothrombin Time 30.7 Seconds (11.1-14.7)
[2021-10-18 11:27] LABS: INR 3.4; Prothrombin Time 33.1 Seconds (11.1-14.7)
[2021-11-19 10:38] LABS: INR 1.9; Prothrombin Time 21.2 Seconds (11.1-14.7)
== END 2021-11-23 23:59 | disposition home or self-care (01) ==
LOC: ANHLAB 10:07
PROVIDERS: PCP Family Medicine Adolescent Medicine; Visit Provider Family Medicine Adolescent Medicine
DX: I82.412 Acute embolism and thrombosis of left femoral vein (principal); M79.605 Pain in left leg
CPT/HCPCS: 36415; 85610

== ENCOUNTER 2021-11-19 10:08 | Outpatient (CLI) | payer MEDICARE, SELFPAY ==
[2021-11-19 10:39] LABS: Hemoglobin A1C 5.8 % (<5.7)
[2021-11-19 10:41] LABS: Alanine Aminotransferase 23 U/L (4-35); Albumin Level 4.4 g/dL (3.5-5.1); Alkaline Phosphatase 65 U/L (38-126); Anion Gap 9 mmol/L (8-16); Aspartate Amino Transferase 27 U/L (14-36); Bilirubin,Total 0.2 mg/dL (0.2-1.3); Blood Urea Nitrogen 15 mg/dL (7-17); Calcium 8.9 mg/dL (8.4-10.2); Carbon Dioxide 25 mmol/L (22-30); Chloride 106 mmol/L (98-107); Cholesterol 242 mg/dL (0-200); Estimated Glomerular Filt Rate > 60; Glucose 102 mg/dL (65-110); HDL Direct 37 mg/dL; Sodium 140 mmol/L (137-145); Triglycerides 218 mg/dL (<150)
[2021-11-19 10:52] LABS: LDL Cholesterol Direct 138 mg/dL
== END 2021-11-19 10:09 | disposition home or self-care (01) ==
LOC: ANHLAB 10:10
PROVIDERS: PCP Family Medicine Adolescent Medicine; Visit Provider Physician Assistant
DX: R73.03 Prediabetes (principal); Z79.01 Long term (current) use of anticoagulants; E78.5 Hyperlipidemia, unspecified; I10 Essential (primary) hypertension
CPT/HCPCS: 36415; 80053; 80061; 83036; 85610

== ENCOUNTER 2022-03-11 08:19 | Outpatient (RCR) | payer MEDICARE, SELFPAY ==
[2021-12-23 16:48] LABS: INR 2.2; Prothrombin Time 23.4 Seconds (11.1-14.7)
[2022-01-20 16:24] LABS: INR 1.8; Prothrombin Time 20.4 Seconds (11.1-14.7)
[2022-02-22 12:51] LABS: INR 2.3; Prothrombin Time 24.2 Seconds (11.1-14.7)
[2022-03-11 09:32] LABS: Hematocrit 36.2 % (37.0-47.0); Mean Corpuscular HGB Conc 33.1 g/dl (32-36); Mean Corpuscular Hemoglobin 32.5 pg (26-34); Mean Corpuscular Volume 98.1 fl (80-100); Mean Platelet Volume 9.4 fl (7.4-10.4); Platelet Count Result 329 k/mm3 (150-375); Red Blood Count 3.69 M/mm3 (4.2-5.4); Red Cell Distribution Width 12.7 % (11.5-14.5); White Blood Count 6.3 K/mm3 (4.5-10.0)
[2022-03-11 09:47] LABS: Prothrombin Time 13.2 Seconds (11.1-14.7)
[2022-03-11 09:48] LABS: Alanine Aminotransferase 39 U/L (6-35); Albumin Level 4.4 g/dL (3.5-5.1); Alkaline Phosphatase 60 U/L (38-126); Anion Gap 7 mmol/L (8-16); Aspartate Amino Transferase 31 U/L (14-36); Bilirubin,Total 0.5 mg/dL (0.2-1.3); Blood Urea Nitrogen 10 mg/dL (7-17); Calcium 9.1 mg/dL (8.4-10.2); Carbon Dioxide 28 mmol/L (22-30); Chloride 105 mmol/L (98-107); Estimated Glomerular Filt Rate > 60; Glucose 91 mg/dL (65-110); Potassium 4.3 mmol/L (3.4-5.0); Sodium 140 mmol/L (137-145)
== END 2022-03-23 23:59 | disposition home or self-care (01) ==
LOC: ANHWCLAB 08:19
PROVIDERS: PCP Family Medicine Adolescent Medicine; Visit Provider Family Medicine Adolescent Medicine
DX: I82.412 Acute embolism and thrombosis of left femoral vein (principal)
CPT/HCPCS: 36415; 80053; 85027; 85610

== ENCOUNTER 2022-04-07 10:56 | Outpatient (CLI) | payer MEDICARE, SELFPAY ==
--- NOTE | ~2022-04-07 | US_ITS ---
EXAMINATION: US venous doppler [facility] DATE: 04/07/2022 12:03 INDICATION: Left lower limb pain. TECHNIQUE: Grayscale ultrasound images without and with compression and Doppler ultrasound images of the left lower extremity veins were obtained. COMPARISON: Ultrasound 06/30/2021 FINDINGS: The visualized portions of left common femoral vein, profunda (deep) femoral vein, popliteal vein, pe roneal veins, posterior tibial veins, and greater saphenous vein outflow are patent. There is thrombu s in left femoral vein. IMPRESSION: 1. Deep vein thrombosis involving left femoral vein. Reviewed, dictated and finalized at location A.
== END 2022-04-07 10:57 | disposition home or self-care (01) ==
LOC: ANHIMG 10:57
PROVIDERS: PCP Family Medicine Adolescent Medicine; Visit Provider Family Medicine Adolescent Medicine
DX: M79.605 Pain in left leg (principal); Z86.718 Personal history of other venous thrombosis and embolism; I82.412 Acute embolism and thrombosis of left femoral vein
CPT/HCPCS: 93971

== ENCOUNTER 2022-06-16 15:47 | Outpatient (RCR) | payer MEDICARE, SELFPAY ==
[2022-04-11 08:47] LABS: INR 4.1; Prothrombin Time 38.8 Seconds (11.1-14.7)
[2022-04-15 07:49] LABS: INR 1.7; Prothrombin Time 19.7 Seconds (11.1-14.7)
[2022-04-28 17:50] LABS: INR 2.6; Prothrombin Time 27.1 Seconds (11.1-14.7)
[2022-05-19 17:20] LABS: INR 2.5; Prothrombin Time 25.9 Seconds (11.1-14.7)
[2022-06-16 16:27] LABS: INR 2.2; Prothrombin Time 23.5 Seconds (11.1-14.7)
== END 2022-07-05 23:59 | disposition home or self-care (01) ==
LOC: ANHLAB 15:47
PROVIDERS: PCP Family Medicine Adolescent Medicine; Visit Provider Family Medicine Adolescent Medicine
DX: I82.412 Acute embolism and thrombosis of left femoral vein (principal)
CPT/HCPCS: 36415; 85610

== ENCOUNTER 2022-07-15 15:57 | Emergency (ER) | payer MEDICARE, SELFPAY ==
[2022-07-15 16:13] VITALS: BP 140/89; PULSE 81; RESP 16; TEMP 37.1; O2SAT 99
--- NOTE | 2022-07-15 16:34 | ED.DENTAL ---
HPI - Dental/Oral General Chief complaint: Dental/Oral Stated complaint: kj Time Seen by Provider: 07/15/22 16:35 Source: patient, RN notes reviewed and old records reviewed Mode of arrival: ambulatory Limitations: no limitations History of Present Illness HPI Narrative: 77-year-old female presents to the [facility] requesting a vitamin K shot. Patient currently on Coumadin. Had a tooth removed yesterday. Called her dental provider who referred her to an emergency room for further evaluation. Bleeding is controlled currently. Related Data Home Medications Medication Instructions Recorded Confirmed multivitamin 1 tablet PO DAILY 09/21/21 02/22/22 Lactobacillus rhamnosus GG 20 1 cell PO DAILY 11/05/21 02/22/22 billion cell capsule (Probiotic Digestive Care) cholecalciferol (vitamin D3) 125 125 mcg PO DAILY 11/05/21 02/22/22 mcg (5,000 unit) capsule Allergies Allergy/AdvReac Type Severity Reaction Status Date / Time sulfamethoxazole Allergy Unknown Unknown Verified 07/15/22 16:06 trimethoprim Allergy Unknown Unknown Verified 07/15/22 16:06 Review of Systems Review of Systems: All systems reviewed & are unremarkable except as noted in HPI and below Constitutional: Constitutional: Reports no additional constitutional complaints, Denies chills and Denies fever(s) Eyes: Eyes: Reports no additional eye complaints ENT: Reports as per HPI Cardiovascular: Cardiovascular: Reports no additional cardiovascular complaints Respiratory: Respiratory: Reports no additional respiratory complaints Gastrointestinal: Gastrointestinal: Reports no additional gastrointestinal complaints Musculoskeletal: Musculoskeletal: Reports no additional musculoskeletal complaints Integumentary/Breasts: Skin/Breast: Reports system reviewed and no additional complaints, except as docu Neurologic: Reports system reviewed and no additional complaints, except as documented Psychiatric: Psychiatric: Reports no additional psychiatric complaints Allergic/Immunologic: Allergic/Immunologic: Reports no additional allergic/immunologic complaints [facility] Past Medical History Medical History Anxiety 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 Depression High cholesterol History of basal cell carcinoma (BCC) History of DVT (deep vein thrombosis) Hypertension Major depressive disorder, recurrent, moderate Prediabetes Surgical History Surgical History History of appendectomy History of knee surgery Left knee arthroscopy 2016 History of rhinoplasty History of tubal ligation Family History Family History Mother Family history of heart disease in male family member before age 55 Thyroid disease Father Family history of heart disease in male family member before age 55 Sibling Graves disease Hypercholesteremia Heart disease Social History Social History Smoking status: Never smoker Second hand tobacco smoke exposure: No Alcohol intake: current Drinks per week: 1 Substance use: never Substance use type: does not use Additional occupation/education comments: [employer] Gender identity (if verbalized by the patient): Female Sexual Orientation (if Verbalized by the Patient): Straight or Heterosexual Spiritual care concerns: No Agree to blood products: Yes Comments At the time of my signature, I reviewed and agree with the nursing past medical, surgical, social, and family history. There is no relevant family history pertinent to the patient complaint. Exam Const: General: healthy appearing, comfortable, no acute distress, well developed, alert and well nourished Nutritional Appearance: well nourished Orientation/consciousness: patient oriented x3 Limitations: no limitations
== END 2022-07-15 16:57 | disposition home or self-care (01) ==
PROVIDERS: Emergency Provider Nurse Practitioner
DX: Z76.89 Persons encountering health services in other specified circumstances (principal)
CPT/HCPCS: 99211; G0463

== ENCOUNTER 2022-08-22 13:40 | Outpatient (CLI) | payer MEDICARE, SELFPAY ==
[2022-08-22 14:13] LABS: Alanine Aminotransferase 35 U/L (6-35); Cholesterol 190 mg/dL (0-200); HDL Direct 38 mg/dL; Triglycerides 280 mg/dL (<150)
[2022-08-22 14:15] LABS: INR 1.7; Prothrombin Time 19.6 Seconds (11.1-14.7)
[2022-08-22 14:24] LABS: LDL Cholesterol Direct 96 mg/dL
== END 2022-08-22 13:41 | disposition home or self-care (01) ==
LOC: ANHLAB 13:43
PROVIDERS: PCP Family Medicine Adolescent Medicine; Visit Provider Family Medicine Adolescent Medicine
DX: E78.00 Pure hypercholesterolemia, unspecified (principal); Z79.899 Other long term (current) drug therapy; Z79.01 Long term (current) use of anticoagulants; Z86.718 Personal history of other venous thrombosis and embolism
CPT/HCPCS: 36415; 80061; 84460; 85610

== ENCOUNTER 2022-10-21 15:40 | Outpatient (RCR) | payer MEDICARE, SELFPAY ==
[2022-07-28 18:03] LABS: INR 2.2; Prothrombin Time 23.3 Seconds (11.1-14.7)
[2022-09-22 17:08] LABS: INR 1.6; Prothrombin Time 18.3 Seconds (11.1-14.7)
[2022-10-21 16:32] LABS: INR 2.7; Prothrombin Time 27.6 Seconds (11.1-14.7)
== END 2022-10-26 23:59 | disposition home or self-care (01) ==
LOC: ANHLAB 15:40
PROVIDERS: Visit Provider Family Medicine Adolescent Medicine
DX: Z51.81 Encounter for therapeutic drug level monitoring (principal); Z86.718 Personal history of other venous thrombosis and embolism; Z79.01 Long term (current) use of anticoagulants
CPT/HCPCS: 36415; 85610

== ENCOUNTER 2023-01-25 16:44 | Outpatient (RCR) | payer MEDICARE, SELFPAY ==
[2022-11-24 17:18] LABS: INR 3.1; Prothrombin Time 31.2 Seconds (11.1-14.7)
[2022-12-22 17:52] LABS: INR 3.4; Prothrombin Time 37.3 Seconds (11.1-14.7)
[2023-01-25 17:05] LABS: INR 4.3; Prothrombin Time 45.7 Seconds (11.1-14.7)
== END 2023-02-22 23:59 | disposition home or self-care (01) ==
LOC: ANHLAB 16:44
PROVIDERS: PCP Family Medicine Adolescent Medicine; Visit Provider Family Medicine Adolescent Medicine
DX: Z51.81 Encounter for therapeutic drug level monitoring (principal); Z86.718 Personal history of other venous thrombosis and embolism; Z79.01 Long term (current) use of anticoagulants
CPT/HCPCS: 36415; 85610

== ENCOUNTER 2023-02-23 05:44 | Day surgery (SDC) | payer MEDICARE, SELFPAY ==
[2023-02-10 13:27] VITALS: BMI 23.4
[2023-02-13 13:31] VITALS: BMI 22.4
--- NOTE | 2023-02-22 12:38 | WPDANESEPPF ---
Anes - Initial Pre Proc Eval Procedure: Operation Date: 02/23/23 07:30 Proposed Procedures p Diagnostic Colonoscopy - Ganesh Perrin MD Date/Time: 02/22/23 12:38 Surgeon: Ganesh Perrin MD Pre Op Diagnosis: Diverticulitis of Intestine-Unspecified Patient Data Age: 78 Gender: F Height: 1.65 m Weight: 61 kg Allergies Allergy/AdvReac Type Severity Reaction Status Date / Time sulfamethoxazole Allergy Unknown Unknown Verified 02/23/23 06:16 trimethoprim Allergy Unknown Unknown Verified 02/23/23 06:16 Home Medications Medication Instructions Recorded Confirmed Type multivitamin 1 tablet PO DAILY 09/21/21 02/13/23 History Lactobacillus rhamnosus GG 20 1 cell PO DAILY 11/05/21 02/13/23 History billion cell capsule (Probiotic Digestive Care) cholecalciferol (vitamin D3) 125 125 mcg PO DAILY 11/05/21 02/13/23 History mcg (5,000 unit) capsule trazodone 50 mg tablet 50 mg PO QHS #30 tabs 08/16/22 02/13/23 Rx alprazolam 1 mg tablet 1 mg PO QHS #90 tabs 12/07/22 02/23/23 Rx lisinopril 10 mg tablet See Rx Instructions .Route 01/12/23 02/13/23 Rx .COMPLEX #90 tabs escitalopram oxalate 20 mg tablet 20 mg PO DAILY #90 tabs 02/03/23 02/13/23 Rx atorvastatin 80 mg tablet 80 mg PO DAILY #90 tabs 02/07/23 02/13/23 Rx sodium,potassium,mag sulfates 17.5 See Rx Instructions PO .COMPLEX 02/10/23 02/23/23 Rx gram-3.13 gram-1.6 gram oral soln #354 mL (Suprep Bowel Prep Kit) rivaroxaban 15 mg tablet (Xarelto) 15 mg PO DIRECTED 02/13/23 02/23/23 History Patient hx anesthesia problems: none Family hx anesthesia problems: none Results Review: All pre-operative results and documents have been reviewed as part of the pre-operative evaluation. [facility] Past Medical History Medical History (Updated 02/23/23 @ 07:45 by Ganesh Perrin MD) Anxiety Current use of long-term anticoagulation Depression High cholesterol History of basal cell carcinoma (BCC) History of DVT (deep vein thrombosis) History of pulmonary embolism Hypertension Major depressive disorder, recurrent, moderate Prediabetes Surgical History Surgical History (Updated 07/16/22 @ 00:01 by Navarro Melvin) History of appendectomy History of knee surgery Left knee arthroscopy 2016 History of rhinoplasty History of tubal ligation Family History Family History Mother Family history of heart disease in male family member before age 55 Thyroid disease Father Family history of heart disease in male family member before age 55 Sibling Graves disease Hypercholesteremia Heart disease Social History Social History (Updated 01/18/23 @ 09:29 by Godfrey Ross [facility]) Smoking status: Never smoker Second hand tobacco smoke exposure: No Alcohol intake: current Drinks per week: 1 Substance use: never Substance use type: does not use Lack of Transportation: No Lack of Food: Never True Current Housing: I Have Housing Concerned About Future Housing: No Difficulty Paying Gas/Electric Bills: No Difficulty Paying for Meds: No Currently Unemployed: No Education: High School Diploma/GED Difficulty w/ Childcare or Family Care: No Living arrangements: alone Occupation/Education: occupation Additional occupation/education comments: [employer] Gender identity (if verbalized by the patient): Female Sexual Orientation (if Verbalized by the Patient): Straight or Heterosexual Spiritual care concerns: No Agree to blood products: Yes Anes - Eval Final PreProcedure Day of Procedure 02/22/23 12:38 Patient weight: normal Heart: regular rate and rhythm Lungs: clear to auscultation and normal air movement Airway: Mallampati scale class II Neurological: alert and oriented Last oral intake: >/= 8 hours ASA classification: III Emergent: no Anesthetic plan: proceed Anesthesia type and monitoring: general GIVS and standard monitori
[2023-02-23 06:05] VITALS: BP 139/88; PULSE 77; RESP 20; O2SAT 96
[2023-02-23] MEDS: LACTATED RINGERS 1,000 ML 150 ML IV CONT (06:17)
--- NOTE | 2023-02-23 07:43 | PM.HPGS ---
History of Present Illness History of Present Illness Consent: Risks, benefits, and alternatives have been discussed and questions answered. Patient agrees to proceed with procedure. Chief complaint: Diverticulitis of Intestine-Unspecified Narrative: Gricelda Sawant is a 78 year old female Presents for colonoscopy because of a left lower quadrant abdominal pain. Patient has a history of diverticulitis many years ago. Patient reports 1 year ago was hospitalized at [facility] elsewhere in found to have a colon infection. Patient reports over the last month or 2 she has had intermittent left lower quadrant abdominal pain and for this reason referred for colonoscopy. Patient was given an empiric trial of antibiotics but has continued to have pain as recently as 2 days ago. She states pain comes before bowel movement feels as though she has to have a bowel movement. It will sometimes persists for short time after the bowel movement. Her bowel movements currently are regular. She does not take laxatives. She denies any bleeding. She has had no fever. She has had no recent imaging studies. Her history is also significant for a history of a DVT a year ago. Currently maintained on Xarelto anticoagulation. This been held for 2 days in anticipation of colonoscopy. Patient's family history is noncontributory. Review of Systems Review of Systems: Review of systems noncontributory. [facility] Past Medical History Medical History (Updated 02/23/23 @ 07:45 by Ganesh Perrin MD) Anxiety Current use of [facility] anticoagulation Depression High cholesterol History of basal cell carcinoma (BCC) History of DVT (deep vein thrombosis) History of pulmonary embolism Hypertension Major depressive disorder, recurrent, moderate Prediabetes Surgical History Surgical History (Updated 07/16/22 @ 00:01 by Navarro Melvin) History of appendectomy History of knee surgery Left knee arthroscopy 2016 History of rhinoplasty History of tubal ligation Family History Family History Mother Family history of heart disease in male family member before age 55 Thyroid disease Father Family history of heart disease in male family member before age 55 Sibling Graves disease Hypercholesteremia Heart disease Social History Social History (Updated 01/18/23 @ 09:29 by Godfrey Ross CMA) Smoking status: Never smoker Second hand tobacco smoke exposure: No Alcohol intake: current Drinks per week: 1 Substance use: never Substance use type: does not use Lack of Transportation: No Lack of Food: Never True Current Housing: I Have Housing Concerned About Future Housing: No Difficulty Paying Gas/Electric Bills: No Difficulty Paying for Meds: No Currently Unemployed: No Education: High School Diploma/GED Difficulty w/ Childcare or Family Care: No Living arrangements: alone Occupation/Education: occupation Additional occupation/education comments: [employer] [place] [employer] Gender identity (if verbalized by the patient): Female Sexual Orientation (if Verbalized by the Patient): Straight or Heterosexual Spiritual care concerns: No Agree to blood products: Yes Meds Home Medications and Allergies Home Medications Medication Instructions Recorded Confirmed Type multivitamin 1 tablet PO DAILY 09/21/21 02/13/23 History Lactobacillus rhamnosus GG 20 1 cell PO DAILY 11/05/21 02/13/23 History billion cell capsule (Probiotic Digestive Care) cholecalciferol (vitamin D3) 125 125 mcg PO DAILY 11/05/21 02/13/23 History mcg (5,000 unit) capsule trazodone 50 mg tablet 50 mg PO QHS #30 tabs 08/16/22 02/13/23 Rx alprazolam 1 mg tablet 1 mg PO QHS #90 tabs 12/07/22 02/23/23 Rx lisinopril 10 mg tablet See Rx Instructions .Route 01/12/23 02/13/23 Rx .COMPLEX #90 tabs escitalopram oxalate 20 mg tablet 20 mg PO DAILY #90 tabs
[2023-02-23 08:05] VITALS: BP 108/62; PULSE 67; RESP 16; O2SAT 98
[2023-02-23 08:15] VITALS: BP 103/59; PULSE 65; RESP 16; O2SAT 100
[2023-02-23 08:25] VITALS: BP 131/78; PULSE 61; RESP 14; O2SAT 98
--- NOTE | 2023-02-23 13:36 | WPDANESPN ---
Anes - Prog Note Post-Op Date/Time: 02/23/23 13:36 Cardiovascular status: normal Respiratory status: normal Airway patency: baseline Mental status: baseline Post-Op hydration status: normal Vital Signs: Last Vital Signs Pulse 61 02/23/23 08:25 Resp 14 02/23/23 08:25 BP 131/78 02/23/23 08:25 Pulse Ox 98 02/23/23 08:25 O2 Del Method Room Air 02/23/23 08:25 Pain Score (VAS): 0 I/O: Intake & Output 02/22/23 02/23/23 02/23/23 23:59 07:59 15:59 Intake Total 800 Balance 800 Post-procedural complaints: none Patient Feedback: Patient satisfied with anesthetic care. Other Findings: Patient vital signs back to baseline. Patient denies nausea and vomiting. Patient's pain under control. Patient OK for discharge.
== END 2023-02-23 08:44 | disposition home or self-care (01) ==
PROVIDERS: PCP Family Medicine Adolescent Medicine; Visit Provider Internal Medicine Gastroenterology
PROC: 0DJD8ZZ Inspection of Lower Intestinal Tract, Via Natural or Artificial Opening Endoscopic (ICD-10-PCS; CPT 45378; principal; 2023-02-23 07:30)
DX: R10.32 Left lower quadrant pain (principal)
CPT/HCPCS: 45378

== ENCOUNTER 2023-02-24 09:26 | Outpatient (CLI) | payer MEDICARE, SELFPAY ==
[2023-02-24 09:52] LABS: Hemoglobin A1C 5.7 % (<5.7)
[2023-02-24 09:54] LABS: Alanine Aminotransferase 32 U/L (6-35); Albumin Level 4.5 g/dL (3.5-5.1); Alkaline Phosphatase 59 U/L (38-126); Anion Gap 9 mmol/L (8-16); Aspartate Amino Transferase 36 U/L (14-36); Bilirubin,Total 0.3 mg/dL (0.2-1.3); Blood Urea Nitrogen 12 mg/dL (7-17); Calcium 9.4 mg/dL (8.4-10.2); Carbon Dioxide 28 mmol/L (22-30); Chloride 102 mmol/L (98-107); Cholesterol 173 mg/dL (0-200); Estimated Glomerular Filt Rate 54; Glucose 125 mg/dL (65-110); HDL Direct 42 mg/dL; Potassium 4.5 mmol/L (3.4-5.0); Sodium 139 mmol/L (137-145); Triglycerides 126 mg/dL (<150)
[2023-02-24 10:05] LABS: LDL Cholesterol Direct 100 mg/dL
== END 2023-02-24 09:27 | disposition home or self-care (01) ==
PROVIDERS: PCP Family Medicine Adolescent Medicine; Visit Provider Family Medicine Adolescent Medicine
DX: E78.5 Hyperlipidemia, unspecified (principal); I10 Essential (primary) hypertension; R73.03 Prediabetes; R74.01 Elevation of levels of liver transaminase levels; R74.02 Elevation of levels of lactic acid dehydrogenase [LDH]; Z79.01 Long term (current) use of anticoagulants
CPT/HCPCS: 36415; 80053; 80061; 83036

== ENCOUNTER 2023-03-08 16:02 | Outpatient (CLI) | payer MEDICARE, SELFPAY ==
[2023-03-08 16:39] LABS: Hematocrit 36.2 % (37.0-47.0); Hemoglobin 11.7 g/dL (12.0-15.0); Mean Corpuscular HGB Conc 32.3 g/dl (32-36); Mean Corpuscular Hemoglobin 32.6 pg (26-34); Mean Corpuscular Volume 100.8 fl (80-100); Mean Platelet Volume 8.7 fl (7.4-10.4); Platelet Count Result 320 k/mm3 (150-375); Red Blood Count 3.59 M/mm3 (4.2-5.4); Red Cell Distribution Width 12.4 % (11.5-14.5); White Blood Count 5.9 K/mm3 (4.5-10.0)
== END 2023-03-08 16:03 | disposition home or self-care (01) ==
LOC: ANHLAB 16:06
PROVIDERS: PCP Family Medicine Adolescent Medicine; Visit Provider Family Medicine Adolescent Medicine
DX: R53.83 Other fatigue (principal)
CPT/HCPCS: 36415; 84443; 85027

== ENCOUNTER → 2023-03-14 11:37 | Outpatient (CLI) | payer MEDICARE, SELFPAY ==
--- NOTE | ~2023-03-14 | XR_ITS ---
XR chest 2V DATE: 03/14/2023 12:17 INDICATION: Dyspnea on exertion TECHNIQUE: 2 views COMPARISON: 06/29/2021 CT pulmonary scan FINDINGS: Normal heart size. Mild aortic tortuosity. No hilar or mediastinal enlargement. No pulmonary infiltrate or consolidation, pleural effusion or pulmonary vascular congestion or pneumo thorax. There is osteopenia. There is degenerative spurring and scoliosis of the thoracic and lumbar spine. IMPRESSION: No active cardiopulmonary disease Reviewed, dictated and finalized at location L.
== END ==
PROVIDERS: PCP Family Medicine Adolescent Medicine; Visit Provider Family Medicine Adolescent Medicine
DX: R06.09 Other forms of dyspnea (principal)
CPT/HCPCS: 71046

== ENCOUNTER → 2023-06-21 13:18 | Outpatient (CLI) | payer MEDICARE, SELFPAY ==
--- NOTE | ~2023-06-21 | DEXA_ITS ---
Bone Density Report Name: TIFFANIE CAIN Age: 78 Sex: Female Ethnicity: White Date of : 1945 Indication: postmenopausal; screening for osteoporosis; height loss; Referring Provider: VINI HARE Study: Bone densitometry was performed. Exam Date: June 21, 2023 Accession number: [id number] There is hypertrophic degenerative change of the lumbar spine, which results in higher than expected spine bone mineral density measurements. These spine BMD and T score and Z score measurements are not reflective of the patient's true general bone mineral density. Bone Density: Region BMD T-score Z-score Classification AP Spine (L1-L4) 1.258 1.9 4.4 Normal Femoral Neck (Left) 0.789 -0.5 1.6 Normal Total Hip (Left) 0.842 -0.8 1.0 Normal Femoral Neck (Right) 0.717 -1.2 1.0 Osteopenia Total Hip (Right) 0.818 -1.0 0.8 Normal Total Hip Mean 0.830 -0.9 0.9 Normal World Health Organization criteria for BMD impression classify patients as: Normal (T-score at or above -1.0), Osteopenia (T-score between -1.0 and -2.5), or Osteoporosis (T-score at or below -2.5). 10-year Fracture Risk(1): Major Osteoporotic Fracture 11% Hip Fracture 2.0% Reported Risk Factors: [place] (), Neck BMD=0.717, BMI=24.6 (1) FRAX(R) Version 3.08. Fracture probability calculated for an untreated patient. Fracture probability may be lower if the patient has received treatment. Previous Exams: Region Exam Age BMD T-score BMD Change BMD Change Date g/cm2 vs Baseline vs Previous AP Spine(L1-L4) 06/21/2023 78 1.258 1.9 0.215* 0.215* 08/06/2010 65 1.043 0.0 Total Hip(Left) 06/21/2023 78 0.842 -0.8 -0.018 -0.018 08/06/2010 65 0.861 -0.7 Total Hip(Right) 06/21/2023 78 0.818 -1.0 -0.033* -0.033* 08/06/2010 65 0.850 -0.8 *Denotes significance at 95% confidence level, LSC for AP Spine = 0.022 g/cm2, LSC for Total Hip = 0.027 g/cm2 Clinical Information Provided by Patient: Patient maximum height was 66 Menopause Age: 52 Drinks caffeinated beverages Onset of menses at age 17 Number of children 2 Impression: The patient has low bone mass, based on the Right Femoral Neck T-score. The patient has an estimated ten-year risk of hip fracture of 2% and an estimated ten-year risk of major fracture of 11%, based on the WHO FRAX algorithm. The BMD for the Total Hip(Right) decreased, changing by -0.033 since
--- NOTE | ~2023-06-21 | MM_ITS ---
EXAMINATION: MM screening [facility] BI w rashmi HISTORY: Screening mammogram TECHNIQUE: Craniocaudal and mediolateral oblique 3-D tomosynthesis images were obtained and synthetic 2-D images were generated. CAD analysis was submitted and interpreted. COMPARISON: 02/04/2021, 05/24/2018 bilateral screening mammogram examinations BREAST PARENCHYMAL COMPOSITION: There are scattered areas of fibroglandular density. FINDINGS: Multiple scattered bilateral benign calcifications, arterial calcifications as well. There is no evidence of suspicious mass, calcification, or architectural distortion to suggest malignancy i n either breast. There has been no suspicious interval change. IMPRESSION: 1. No mammographic evidence of malignancy. 2. Recommend routine screening mammography in one year. BI-RADS Category 2: Benign finding(s). Reviewed, dictated and finalized at location A.
== END ==
PROVIDERS: PCP Family Medicine Adolescent Medicine; Visit Provider Family Medicine Adolescent Medicine
DX: Z12.31 Encounter for screening mammogram for malignant neoplasm of breast (principal); Z78.0 Asymptomatic menopausal state; M85.851 Other specified disorders of bone density and structure, right thigh
CPT/HCPCS: 77063; 77067; 77080

== ENCOUNTER 2024-02-07 09:42 | Outpatient (CLI) | payer MEDICARE, SELFPAY ==
--- NOTE | ~2024-02-07 | US_ITS ---
Duplex Sonography of the right extremity: Indication: Pain and swelling Findings: Sagittal and transverse B-mode images as well as color-flow imaging were performed on the r ight femoral and popliteal veins. B-mode examination was done without and with compression in the tr ansverse plane. There is good visualization of the common femoral, proximal profunda femoral, superf icial femoral, greater saphenous, and popliteal veins. Normal flow was seen on color-flow imaging. N ormal compressibility was demonstrated. Visualized calf veins are also patent. Impression: No evidence of deep vein thrombosis involving the right lower extremity. Reviewed, dictated and finalized at location . Impression: No evidence of deep vein thrombosis involving the right lower extremity.
== END 2024-02-07 09:43 | disposition home or self-care (01) ==
PROVIDERS: PCP Family Medicine Adolescent Medicine; Visit Provider Nurse Practitioner Family
DX: M79.651 Pain in right thigh (principal); Z86.718 Personal history of other venous thrombosis and embolism
CPT/HCPCS: 93971

== ENCOUNTER 2024-06-24 14:30 | Outpatient (CLI) | payer MEDICARE, SELFPAY ==
--- NOTE | ~2024-06-24 | XR_ITS ---
2 views of the left calcaneus Clinical history: Pain FINDINGS: No fracture or dislocation seen. Joint spaces are intact. Small plantar calcaneal spur pres ent. There is mild enthesopathic change at the Achilles tendon insertion. Soft tissues are unremarkab le. IMPRESSION: Small plantar calcaneal spur. Reviewed, dictated and finalized at location .
== END 2024-06-24 14:31 | disposition home or self-care (01) ==
PROVIDERS: PCP Family Medicine Adolescent Medicine; Visit Provider Nurse Practitioner Family
DX: M79.672 Pain in left foot (principal); M77.32 Calcaneal spur, left foot
CPT/HCPCS: 73650

== ENCOUNTER 2025-03-28 11:09 | Outpatient (CLI) | payer MEDICARE, SELFPAY ==
--- NOTE | ~2025-03-28 | XR_ITS ---
XR hip RT min 2V 03/28/2025 11:24 Indication: Right hip pain Procedure: 2 views right hip Comparison: No prior studies for comparison. Findings: Mild osteoarthritis of the right hip. No fracture, subluxation or dislocation. No significa nt soft tissue abnormality. No foreign bodies. Impression: 1: Mild osteoarthritis of the right hip. Reviewed, dictated and finalized at location A. Impression: 1: Mild osteoarthritis of the right hip.
== END 2025-03-28 11:10 | disposition home or self-care (01) ==
LOC: MICIMG 11:10
PROVIDERS: PCP Family Medicine Adolescent Medicine; Visit Provider Nurse Practitioner Family
DX: M16.11 Unilateral primary osteoarthritis, right hip (principal)
CPT/HCPCS: 73502

== ENCOUNTER 2025-06-17 10:32 | Outpatient (CLI) | payer MEDICARE, SELFPAY ==
--- NOTE | ~2025-06-17 | XR_ITS ---
EXAMINATION: XR chest 2V, 06/17/2025 10:44 CDT HISTORY: R07.9 - Chest pain, unspecified COMPARISON: No comparisons available. Technique: 2 views obtained. Findings: The lungs are clear, no effusion. No pneumothorax. Heart is normal size. Mediastinal and hilar contours are within normal limits. Bony thorax no acute abnormality. Impression: No acute cardiopulmonary abnormality. Reviewed, dictated and finalized at location P. Impression: No acute cardiopulmonary abnormality.
--- OUTSIDE RECORDS SUMMARY | 2025-06-17 12:58 | XMS_ITS | Clinical Summary ---
Author Organization [facility] Address [facility] [place] [address] Care Team Providers Care Torsion Spring Coiling Machine Setter Name Role Phone Brain Overton MD Primary Care Prov ider Allergies Active Allergy Reactions Criticality Noted Date Comments Sulfamethoxazole Unknown 07/01/2021 Trimethoprim Unknown 07/01/2021 Medications ALPRAZolam (XANAX) 1 mg tablet Take 1 mg by mouth nightly as needed for anxiety Active atorvastatin (LIPITOR) 40 mg tablet Take 40 mg by mouth daily Active escitalopram (Lexapro) 20 mg tablet Take 20 mg by mouth daily Active lisinopriL (PRINIVIL,ZESTR IL) 10 mg tablet Take 10 mg by mouth daily Active warfarin (COUMADIN) 5 mg tabletIndicatio ns:thrombophili a Take 1.5 tablets (7.5 mg total) by mouth daily for 10 days 5 mg tab + 2 mg tab = 7 mg daily Ina Leung MD. 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 Left leg pain 07/06/2021 Anticoagulated 07/06/2021 Assessment & Plan (08/04/2021 1:06 PM SUPERINTENDENT MECHANICAL): Patient is on Coumadin. Hypertension 07/06/2021 Assessment & Plan (08/04/2021 1:06 PM SUPERINTENDENT MECHANICAL): Followed by her PCP and controlled on her current medications. Anxiety 07/06/2021 DVT of leg (deep venous thrombosis) 07/01/2021 DVT of lower extremity (deep venous thrombosis) 06/30/2021 Overview (07/01/2021): Added automatically from request for surgery [id number] Assessment & Plan (08/04/2021 1:05 PM SUPERINTENDENT MECHANICAL): Patient has a DVT of the left lower extremity but unfortunately rethrombosed her leg after having a thrombectomy. She has been anticoagulated and with compression therapy since leaving the hospital. Her leg swelling is significantly better and her leg is nice and soft now. She is also not having any pain. She will continue wear compression stockings and can follow up with me as needed. Immunizations Immunization Administration Dates Next Due Influenza, Quadrivalent, Hig h Dose, Preservative Free, Intrr 05/01/2021 Influenza, Trivalent, High D ose, Split, Preservative Free, Intramuscular 05/12/2018,07/01/2017,06/02/2016,06/11,06/05/2014 Influenza, Trivalent, IM (MDV) 06/11/2013 Influenza, Trivalent, Preser vative Free, Intramuscular 05/13/2020 Tdap 06/28/2017 ZOSTER Recombinant 03/11/2019 Surgical History Surgery Date Site/Laterality Comments THROMBECTOMY / EMBOLECTOMY FEMORAL ARTERY Medical History Medical History Date Comments Dvt femoral (deep venous thrombosis) (HCC) Social History Tobacco Use Types Packs/Day Years Used Date Smoking Tobacco: Never Smokeless Tobacco: Never Personal Safety Answer Date Recorded Getting School Help Needed Not on file 10/27 Comments Unknown Sex and Gender Information Value Date Recorded Sex Assigned at Not on file Legal Sex Female 3:30 AM SUPERINTENDENT MECHANICAL Gender Identity Not on file Sexual Orientation Not on file Obstetrics History Last Filed Vital Signs Vital Sign Reading Time Taken Comments Blood Pressure 117/74 08/03/2021 1:00 PM SUPERINTENDENT MECHANICAL Pulse 81 08/03/2021 1:00 PM SUPERINTENDENT MECHANICAL Temperature 36.7 C (98.1 F) 07/15/2021 4:11 PM SUPERINTENDENT MECHANICAL Respiratory Rate 17 07/15/2021 4:11 PM SUPERINTENDENT MECHANICAL Oxygen Saturation 94% 07/15/2021 4:11 PM SUPERINTENDENT MECHANICAL Inhaled Oxygen Concentration - - Weight 74.8 kg (165 lb) 08/03/2021 1:00 PM SUPERINTENDENT MECHANICAL Height 165.1 cm (5' 5) 08/03/2021 1:00 PM SUPERINTENDENT MECHANICAL Body Mass Index 27.46 08/03/2021 1:00 PM SUPERINTENDENT MECHANICAL Plan of Treatment Not on file Insurance [employer] H[employer] REF Member Subscriber Plan / Payer (Ef fective 2020-Present) Name:Gricelda Sawant Relation to Subscriber:Self Name:Gricelda Sawant Payer ID:[id number] (NAIC) Type:[facility] Address: [place] [phone] [employer] H[employer] REF Advance Directives For more information, please contact: [phone] * Full Code (Latest Code Status on File) Date Activated Date Inactivated Comments 07/01/2021 3:28 PM 07/02/2021 7:12 PM Care Teams Torsion Spring Coiling Machine Setter Relationship Specialty Start Date End Date Brain Overton MD PCP - General Family Medicine 06/30/21
== END 2025-06-17 10:33 | disposition home or self-care (01) ==
PROVIDERS: PCP Family Medicine Adolescent Medicine; Visit Provider Nurse Practitioner Family
DX: R07.9 Chest pain, unspecified (principal); R06.09 Other forms of dyspnea
CPT/HCPCS: 71046

== ENCOUNTER 2025-07-03 09:57 | Outpatient (CLI) | payer MEDICARE, SELFPAY ==
--- OUTSIDE RECORDS SUMMARY | 2025-07-03 18:21 | XMS_ITS | Clinical Summary ---
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 Left leg pain 07/06/2021 Anticoagulated 07/06/2021 Assessment & Plan (08/04/2021 1:06 PM SECURITY VEHICLE PATROL OFFICER): Patient is on Coumadin. Hypertension 07/06/2021 Assessment & Plan (08/04/2021 1:06 PM SECURITY VEHICLE PATROL OFFICER): Followed by her PCP and controlled on her current medications. Anxiety 07/06/2021 DVT of leg (deep venous thrombosis) 07/01/2021 DVT of lower extremity (deep venous thrombosis) 06/30/2021 Overview (07/01/2021): Added automatically from request for surgery [id number] Assessment & Plan (08/04/2021 1:05 PM SECURITY VEHICLE PATROL OFFICER): Patient has a DVT of the left [...] on file Legal Sex Female 3:30 AM SECURITY VEHICLE PATROL OFFICER Gender Identity Not on file Sexual Orientation Not on file Last Filed Vital Signs Vital Sign Reading Time Taken Comments Blood Pressure 117/74 08/03/2021 1:00 PM SECURITY VEHICLE PATROL OFFICER Pulse 81 08/03/2021 1:00 PM SECURITY VEHICLE PATROL OFFICER Temperature 36.7 C (98.1 F) 07/15/2021 4:11 PM SECURITY VEHICLE PATROL OFFICER Respiratory Rate 17 07/15/2021 4:11 PM SECURITY VEHICLE PATROL OFFICER Oxygen Saturation 94% 07/15/2021 4:11 PM SECURITY VEHICLE PATROL OFFICER Inhaled Oxygen Concentration - - Weight 74.8 kg (165 lb) 08/03/2021 1:00 PM SECURITY VEHICLE PATROL OFFICER Height 165.1 cm (5' 5) 08/03/2021 1:00 PM SECURITY VEHICLE PATROL OFFICER Body Mass Index 27.46 08/03/2021 1:00 PM SECURITY VEHICLE PATROL OFFICER Plan of Treatment Not on file Insurance [facility] REF Advance Directives For more information, please contact: [phone] * Full Code (Latest Code Status on File) Date Activated Date Inactivated Comments 07/01/2021 3:28 PM 07/02/2021 7:12 PM Care Teams Broom Maker Relationship Specialty Start Date End Date Brain Overton MD PCP - General Family Medicine 06/30/21
--- OUTSIDE RECORDS SUMMARY | 2025-07-03 18:21 | XMS_ITS | Clinical Summary ---
Author Organization [facility] Address [facility] [place] [address] Care Team Providers Care Machine Clothing Man Name Role Phone Brain Overton MD Primary Care Provider [phone] Allergies No known active allergies Medications ALPRAZolam 1 MG tablet Take 1 mg by mouth nightly as needed. Active atorvastatin 40 MG tablet Take 40 mg by mouth daily. Active escitalopram 20 MG tablet Take 20 mg by mouth daily. Active lisinopril 10 MG tablet Take 10 mg by mouth daily. Active probiotic Cap capsule Take 1 capsule by mouth nightly at bedtime. Active multi vitamin/minerals tablet Take 1 tablet by mouth daily. Active ondansetron 4 MG disintegrating tablet Take 1 tablet (4 mg total) by mouth every 8 (eight) hours as needed for Nausea. 20 tablet 2 Active warfarin 5 MG tablet Take 0.5 tablets (2.5 mg total) by mouth daily with supper. 30 tablet 2 Active Active Problems Problem Noted Date Diagnosed Date DVT (deep venous thrombosis) 02/13/2022 Acute diverticulitis 02/13/2022 Encounters Date Type Department Care Team Description 04/21/2025 10:59 AM CDT - 04/21/2025 11:59 PM CDT Hospital Encounter [facility] [place] [address] [place] [address] Dru Smiley MD,PHD Discharge Disposition: Home or Self Care (Routine Discharge) 04/20/2025 10:31 PM CDT - 04/21/2025 12:10 AM CDT Emergency [facility] Emergency Room [facility] [place] [address] Jackie Baldwin PA Calf Pain Discharge Disposition: Home or Self Care (Routine Discharge) 04/20/2025 Travel from Last 3 Months Social History Tobacco Use Types Packs/Day Years Used Date Smoking Tobacco: Never Smokeless Tobacco: Never Alcohol Use Standard Drinks/Week Comments Yes 0 (1 standard drink = 0.6 oz pur e alcohol) occassional Humiliation, Afraid, Rape, and Kick questionnair e Answer Date Recorded Within the last year, have y ou been afraid of your partner or ex-partner? No 02/13/2022 Within the last year, have y ou been humiliated or emotionally abused in other ways by your partner or ex-partner? No Within the last year, have y ou been kicked, hit, slapped, or otherwise physically hurt by your partner or ex-partner? No 02/13/2022 Within the last year, have y ou been raped or forced to have any kind of sexual activity by your partner or ex-partner? No 02/13/2022 Social Connection and Isolation Panel Answer Date Recorded In a typical week, how many times do you talk on the phone with family, friends, or neighbors? More than three times a week 02/13/2022 How often do you get togethe r with friends or relatives? Once a week 02/13/2022 How often do you attend [facility] or voodoo services? More than 4 times per year 02/13/2022 Do you belong to any clubs o r organizations such as oriental orthodox groups, unions, fraternal or athletic groups, or school groups? No 02/13/2022 How often do you attend meet ings of the clubs or organizations you belong to? Never 02/13/2022 Are you , , di vorced, , never , or living with a partner? 02/13/2022 AUDIT-C Answer Date Recorded Q1: How often do you have a drink containing alc ohol? 2-4 times a month 02/13/2022 Q2: How many drinks containi ng alcohol do you have on a typical day when you are drinking? 1 or 2 02/13/2022 Q3: How often do you have si x or more drinks on one occasion? Never 02/13/2022 Overall Financial Resource Strain (CARDIA) Answe r Date Recorded How hard is it for you to pa y for the very basics like food, housing, medical care, and heating? Not hard at all 02/13/2022 PHQ-2 Answer Date Recorded PHQ-2 Score - If the patient scores above 3, please move on to questions 3-9 0 02/13/2022 [facility] - Occupational Stress Questionnaire Answer Date Recorded Do you feel stress - tense, restless, nervous, or anxious, or unable to sleep at night because your mind is troubled all the time - these days? Not at all 02/13/2022 Exercise Vital Sign Answer Date Recorde d On average, how many days pe r week do you engage in moderate to strenuous exercise (like a brisk walk)? 3 days 02/13/2022 On average, how many minutes do you engage in exercise at this level? 20 min 02/13/2022 Hunger Vital Sign Answer Date Recorded Within the past 12 months, y ou worried that your food would run out before you got the money to buy more. Never true 02/14/20 22 Within the past 12 months, t he food you bought just didn't last and you didn't have money to get more. Never true 02/13/2022 PRAPARE - Transportation Answer Date Re corded In the past 12 months, has l ack of transportation kept you from medical appointments or from getting medications? No 01/26 In the past 12 months, has l ack of transportation kept you from meetings, work, or from getting things needed for daily living? No 02/13/2022 Housing Stability Vital Sign Answer Jovan e Recorded In the last 12 months, was t here a time when you were not able to pay the mortgage or rent on time? No 02/13/2022 In the last 12 months, how many places have you lived? 1 02/13/2022 In the last 12 months, was t here a time when you did not have a steady place to sleep or slept in a fpc (including now)? No 02/13/2022 Comments No Sex and Gender Information Value Date Recorded Sex Assigned at Female 04/21/2025 10:57 AM CDT Legal Sex Female 9:14 AM CDT Gender Identity Not on file Sexual Orientation Not on file Last Filed Vital Signs Vital Sign Reading Time Taken Comments Blood Pressure 163/101 04/20/2025 11:54 PM CDT Pulse 77 04/20/2025 10:18 PM CDT Temperature 36.3 C (97.3 F) 04/20/2025 10:18 PM CDT Respiratory Rate 18 04/20/2025 10:18 PM CDT Oxygen Saturation 94% 04/20/2025 10:18 PM CDT Inhaled Oxygen Concentration - - Weight 72.4 kg (159 lb 9.8 oz) 04/20/2025 10:18 PM CDT Height 162.6 cm (5' 4) 04/20/2025 10:18 PM CDT Body Mass Index 27.4 04/20/2025 10:18 PM CDT Plan of Treatment Health Maintenance Due Date Last Done Comments Hepatitis C 1963 Annual Medicare Wellness Visit 02/04/2012 Dexa Scan (General) 02/04/2012 Zoster Vaccines (3 of 3) 05/06/2019 019, 03/11/2019, 11/29/2018 RSV Immunization or 60+ Years (1 - 1-dose 75+ series) 2022 COVID-19 Vaccine (3 - season) 2025 06/29/2021, 11/05/2020 Influenza Adult (#1) 2025 04/28/2021, 05/13/2020, 05/12/2018, Additional history exists DTaP, Tdap and Td Vaccines (2 - Td or Tdap) 06/28/2027 06/28/2017 Pneumococcal Vaccine: 50+ Years Completed 09/03/2020, 05/17/2016 Hepatitis A Vaccines Aged Out No long er eligible based on patient's age to complete this topic Meningococcal B Vaccine Aged Out No l onger eligible based on patient's age to complete this topic Meningococcal Vaccine Aged Out No kiara audi eligible based on patient's age to complete this topic RSV Immunizations Under 20 Months Aged Out No longer eligible based on patient's age to complete this topic Goals Goal Patient Goal Type Associated Problems Recent Progress Patient-Stated? Author Safety - demonstrates understanding of home safety measures General No Jeri Mccall, electronic system engineer Procedure Name Priority Date/Time Associated Diagnosis Comments USV SANTINO DUPLEX LOW EXT LT Routine 04/21/2025 11:19 AM CDT Pain and swelling of left lower extremity D-DIMER, QUANTITATIVE STAT 04/20/2025 10:37 PM CDT BASIC METABOLIC PANEL STAT 04/20/2025 10:37 PM CDT CBC W/DIFF AUTOMATED STAT 04/20/2025 10:37 PM CDT from Last 3 Months Results * USV SANTINO DUPLEX LOW EXT LT (04/21/2025 11:19 AM CDT) Anatomical Region Laterality Modality Vascular Ultraso und 04/21/2025 11:0 1 AM CDT Narrative 04/21/2025 10:42 PM CDT VENOUS DUPLEX IMAGING LEFT LOWER EXTREMITY VASCULAR LAB Pat.Name: TIFFANIE CAIN Pat.ID: [id number] St.Date: 04/21/2025 Refer.MD: Brain Overton Exam Time: 11:01:00 AM Study Type:NELL VS Venous Duplex Leg Lt Age: 6 1945,80Y Sex: F Sonogrphr: Raheem Bhandari, T Pat. Stat.:Outpatient History / Clinical:left lower extremity pain and swelling, hx DVT, on Xarelto, D-dimer 297 Procedures: Kasper scale, Color Doppler imaging, Doppler Spectral Analysis Race: W ++++++++++++++++++++++++++++++++++++ SUMMARY: ++++++++++++++++++++++++++++++++++++ Left leg: There are NO apparent, deep or superficial vein, ACUTE character venous filling defects visualized in the femoral, popliteal, deep calf or proximal saphenous veins. Resting venous flow is normal phasic proximally. Chronic character scarring is noted in the left commmon femoral and femoral veins. Right leg LIMITED: Resting venous flow is normal phasic at the common femoral. CONCLUSION: Chronic deep vein thrombosis in the left common femoral and femoral veins. <Electronic Signature> 04/21/2025 10:42 PM Tevin Ortiz M.D. Procedure Note Tevin Ortiz MD - 04/21/2025 VENOUS DUPLEX IMAGING LEFT LOWER EXTREMITY VASCULAR LAB Pat.Name: TIFFANIE CAIN Pat.ID: [id number] .Date: 04/21/2025 Refer.MD: Brain Overton Exam Time: 11:01:00 AM Study Type:NELL VS Venous Duplex Leg Lt Age: 6 1945,80Y Sex: F Sonogrphr: Raheem Bhandari RVT Pat. Stat.:Outpatient History / Clinical:left lower extremity pain and swelling, hx DVT, on Xarelto, D-dimer 297 Procedures: Kasper scale, Color Doppler imaging, Doppler Spectral Analysis Race: W ++++++++++++++++++++++++++++++++++++ SUMMARY: ++++++++++++++++++++++++++++++++++++ Left leg: There are NO apparent, deep or superficial vein, ACUTE character venous filling defects visualized in the femoral, popliteal, deep calf or proximal saphenous veins. Resting venous flow is normal phasic proximally. Chronic character scarring is noted in the left commmon femoral and femoral veins. Right leg LIMITED: Resting venous flow is normal phasic at the common femoral. CONCLUSION: Chronic deep vein thrombosis in the left common femoral and femoral veins. <Electronic Signature> 04/21/2025 10:42 PM Tevin Ortiz M.D. Jackie [facility] Final Resul t * (ABNORMAL) BASIC METABOLIC PANEL (04/20/2025 10:37 PM CDT) GLUCOSE 104(H) 70 - 99 MG/DL 04/20/2025 11:15 PM CDT [facility] BUN 13 7 - 18 MG/DL 04/20/2025 11:15 PM CDT [facility] CREATININE S/P/B 1.26(H) 0.55 - 1.02 MG/DL 04/20/2025 11:15 PM CDT [facility] SODIUM S/P/B 141 136 - 145 MMOL/L 04/20/2025 11:15 PM CDT [facility] POTASSIUM S/P/B 3.8 3.5 - 5.1 MMOL/L 04/20/2025 11:15 PM CDT [facility] CHLORIDE S/P/B 110 97 - 115 MMOL/L 04/20/2025 11:15 PM CDT [facility] CO2 26.3 21 - 32 MMOL/L 04/20/2025 11:15 PM CDT [facility] CALCIUM S/P/B 8.9 8.5 - 10.1 MG/DL 04/20/2025 11:15 PM CDT [facility] ANION GAP 4.7 2 - 10 MMOL/L 04/20/2025 11:15 PM CDT [facility] BUN CREATININE RATIO 10.3 6 - 26 04/20/2025 11:15 PM CDT [facility] GFR ESTIMATE 44(L) >90 ML/MIN/1.7 3 M2 04/20/2025 11:15 PM CDT [facility] Comment: NOTE: eGFR is not calculated for patients <18 years of age or gender unknown. This is an estimated GFR calculation using the new CKD EPI creatinine equation without race and so does not require a correction factor for race. This estimated GFR should not be used for calculating drug doses. 04/20/2025 10:3 7 PM CDT us Jackie [facility] Final Resul t [facility] [address] [place] [address], * D-DIMER, QUANTITATIVE (04/20/2025 10:37 PM CDT) [facility] D-DIMER 297 0 - 500 ng{FEU}/mL 04/20/2025 11:19 PM CDT [facility] Comment: D-Dimer values less than or equal to 500 ng/mL FEU have a negative predictive value of >95% for exclusion of deep vein thrombosis and pulmonary embolism. In patients over 50 (who tend to have higher normal baseline D-Dimer values), recent studies suggest age-adjusted D-Dimer cutoff values (calculated as: age [years] x 10 ng/mL) result in equivalent outcomes and no additional false negative findings. 04/20/2025 10:3 7 PM CDT [facility] Final Resul t [facility] [address] [place] [address], * (ABNORMAL) CBC W/DIFF AUTOMATED (04/20/2025 10:37 PM CDT) [facility] WBC 5.80 4.5 - 11.0 x10'3/uL 04/20/2025 11:01 PM CDT [facility] RBC 3.33(L) 4.20 - 5.40 x10'6/uL 04/20/2025 11:01 PM CDT [facility] HGB 11.1(L) 12.0 - 16.0 G/DL 04/20/2025 11:01 PM CDT [facility] HCT 32.9(L) 38.0 - 48.0 % 04/20/2025 11:01 PM CDT [facility] MCV 98.8 81.0 - 99.0 FL 04/20/2025 11:01 PM CDT [facility] MCH 33.3(H) 27.0 - 31.0 PG 04/20/2025 11:01 PM CDT [facility] MCHC 33.7 32.0 - 36.0 G/DL 04/20/2025 11:01 PM CDT [facility] RDW 13.3 11.5 - 14.5 % 04/20/2025 11:01 PM CDT [facility] PLT 320 130 - 400 x10'3/uL 04/20/2025 11:01 PM CDT [facility] MPV 8.9(L) 9.3 - 12.2 FL 04/20/2025 11:01 PM CDT [facility] DIFFERENTIAL TYPE AUTOMATED DIFFERENTIAL 04/20/2025 11:01 PM CDT [facility] NEUTROPHILS % 39.8 % 04/20/2025 11:01 PM CDT [facility] LYMPHOCYTES % 44.8 % 04/20/2025 11:01 PM CDT [facility] MONOCYTES % 12.2 % 04/20/2025 11:01 PM CDT [facility] EOSINOPHILS 2.6 % 04/20/2025 11:01 PM CDT [facility] BASOPHILS 0.3 % 04/20/2025 11:01 PM CDT [facility] IMMATURE GRANS % 0.3 % 04/20/20 11:01 PM CDT [facility] ABS. NEUTROPHILS 2.30 1.80 - 7.70 x10'3/uL 04/20/2025 11:01 PM CDT [facility] ABS. LYMPHOCYTES 2.60 1.00 - 4.80 x10'3/uL 04/20/2025 11:01 PM CDT [facility] ABS. MONOCYTES 0.71 0.24 - 0.86 x10'3/uL 04/20/2025 11:01 PM CDT [facility] ABS. EOSINOPHILS 0.15 0.04 - 0.36 x10'3/uL 04/20/2025 11:01 PM CDT [facility] ABS. BASOPHILS 0.02 0.01 - 0.08 x10'3/uL 04/20/2025 11:01 PM CDT [facility] ABS. IMMATURE GRANULOCYTES 0.02 0.00 - 0.49 x10'3/uL 04/20/2025 11:01 PM CDT [facility] 04/20/2025 10:3 7 PM CDT [facility] Final Resul t [facility] [address] [place] [address], from Last 3 [place] [address] Advance Directives * DNR (Latest Code Status on File) Date Activated Date Inactivated Comments 02/13/2022 1:12 PM 02/15/2022 7:42 PM * Full Code Date Activated Date Inactivated Comments 02/13/2022 12:13 PM 02/13/2022 1:12 PM Care Teams Machine Clothing Man Relationship Specialty Start Date End Date Brain Overton MD [address] [address] PCP - General FAMILY PRACTICE 02/13/22
--- OUTSIDE RECORDS SUMMARY | 2025-07-03 18:21 | XMS_ITS | Patient Health Record ---
Author Organization [facility] [employer] [facility] Address [address] [place] [address] Care Team Providers Care Sociocultural Anthropology Professor Name Role Phone Frankie Ventura Unavailable [phone] Reason For Referral No Information Medications Medication SIG (Take, Route, Frequency, Duration) Notes Start Date End Date Status ARIPiprazole 2 MG Tablet Oral 11/10/2023 Active Doxycycline Hyclate 100 MG Capsule Oral 11/10/2023 Active LAGEVRIO 200 MG CAPSULE (EUA) *Reorder from [employer] for eRx and Interaction Alerts* 11/10/2023 Active Escitalopram Oxalate 20 MG Tablet Oral 11/10/2023 Active Xarelto 15 MG Tablet Oral 11/10/2023 Active Atorvastatin Calcium 80 MG Tablet Oral 11/10/2023 Active Xarelto 20 MG Tablet Oral 11/10/2023 Active Lisinopril 10 MG Tablet Oral 11/10/2023 Active traZODone HCl 50 MG Tablet Oral 11/10/2023 Active ALPRAZolam 1 MG Tablet Oral 11/10/2023 Active Social History Social History Additional Details Category Social Info Options Details Migrated Social History Migrated Social History Alcohol Intake: Occasional 10/11/2023,Tobacco Years: Never smoker 10/11/2023 Plan Of Treatment No Information Insurance Providers Payer Name Payer Address Payer Phone Subscriber Number Group Number Insured Name Patient Relationship to Insured Coverage Start Date Coverage End Date [employer] Medicare Replacement/ Advantage - Hmo [address] [address] [place] [address] [id number] TIFFANIE CAIN Self - patient is the insured Medical (General) History Surgical History Surgery Date(Month/Year) Any surgical history 08/28/1968 Cosmetic surgery 12/26/1982 Cataract surgery (09836) 04/28/2023 Appendectomy (66506) 06/28/1969 Other 06/28/2022
== END 2025-07-03 09:58 | disposition home or self-care (01) ==
LOC: ANHLAB 09:58
PROVIDERS: PCP Family Medicine Adolescent Medicine; Visit Provider Family Medicine Adolescent Medicine
DX: R19.7 Diarrhea, unspecified (principal)
CPT/HCPCS: 87045; 87046; 87427

== ENCOUNTER 2025-07-10 07:21 | Outpatient (CLI) | payer MEDICARE, SELFPAY ==
--- NOTE | ~2025-07-10 | NM_ITS ---
EXAMINATION: NM laurie stress w perfusion DATE: 07/10/2025 09:42 INDICATION: Unspecified chest pain TECHNIQUE: Rest images were obtained following intravenous administration of 10.6 mCi Tc99m tetrofosmin (Myoview). The patient was infused intravenously with Lexiscan (Regadenoson). Then, 32.8 mCi Tc99m tetrofosmin (Myoview) was administered intravenously, and stress images were obtained. Data was teresa nstructed into short axis and horizontal and vertical long axis SPECT images. Gated SPECT images were also obtained. COMPARISON: None. FINDINGS: There is no definite reversible or fixed perfusion abnormality to suggest ischemia or infarction. There is normal left ventricular chamber size, wall motion and ejection fraction. Left ventricular ejection fraction measures 70%. IMPRESSION: 1. Normal myocardial perfusion at rest and during stress. 2. Left ventricular ejection fraction measuring 70%. Reviewed, dictated and finalized at location A. SERVICER
--- OUTSIDE RECORDS SUMMARY | 2025-07-10 07:24 | XMS_ITS | Clinical Summary ---
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 Left leg pain 07/06/2021 Anticoagulated 07/06/2021 Assessment & Plan (08/04/2021 1:06 PM ROLL MECHANIC): Patient is on Coumadin. Hypertension 07/06/2021 Assessment & Plan (08/04/2021 1:06 PM ROLL MECHANIC): Followed by her PCP and controlled on her current medications. Anxiety 07/06/2021 DVT of leg (deep venous thrombosis) 07/01/2021 DVT of lower extremity (deep venous thrombosis) 06/30/2021 Overview (07/01/2021): Added automatically from request for surgery [id number] Assessment & Plan (08/04/2021 1:05 PM ROLL MECHANIC): Patient has a DVT of the left [...] on file Legal Sex Female 3:30 AM ROLL MECHANIC Gender Identity Not on file Sexual Orientation Not on file Last Filed Vital Signs Vital Sign Reading Time Taken Comments Blood Pressure 117/74 08/03/2021 1:00 PM ROLL MECHANIC Pulse 81 08/03/2021 1:00 PM ROLL MECHANIC Temperature 36.7 C (98.1 F) 07/15/2021 4:11 PM ROLL MECHANIC Respiratory Rate 17 07/15/2021 4:11 PM ROLL MECHANIC Oxygen Saturation 94% 07/15/2021 4:11 PM ROLL MECHANIC Inhaled Oxygen Concentration - - Weight 74.8 kg (165 lb) 08/03/2021 1:00 PM ROLL MECHANIC Height 165.1 cm (5' 5) 08/03/2021 1:00 PM ROLL MECHANIC Body Mass Index 27.46 08/03/2021 1:00 PM ROLL MECHANIC Plan of Treatment Not on file [facility] H[facility] REF Advance Directives For more information, please contact: [phone] * Full Code (Latest Code Status on File) Date Activated Date Inactivated Comments 07/01/2021 3:28 PM 07/02/2021 7:12 PM Care Teams Fountain Pen Nibs Inspector Relationship Specialty Start Date End Date Brain Overton MD PCP - General Family Medicine 06/30/21
--- NOTE | 2025-07-10 07:34 | EST_ITS ---
Patient Info Name: Gricelda Sawant Age: 80 years : 1945 Gender: Female Ht: 65 in Wt: 155 lbs BSA: 1.81 m2 HR: 77 bpm BP: 148 / 86 mmHg Exam Date: 07/10/2025 7:34 AM Patient Status: O Admit Date: 07/10/2025 Exam Type: CA stress laurie w NM A regadenoson stress test was performed. Staff Referring Physician: Marley Villanueva Attending Provider: Marley Villanueva Exercise Technologist: Darlin Mak Exercise Physician: Alfonzo Wall DO Summary 1. 1. Negative lexiscan stress test for ischemic ST changes by ECG criteria. 2. 2. Baseline hypertension. 3. 3. Nuclear scan to follow and will be reported separately. Please correlate with it. 4. 4. Patient informed of the above results. Protocol: Lexiscan Stress ECG Details Stage: REST Duration (min): 1 min : 14 sec HR (bpm): 77 SBP (mmHg): 148 DBP (mmHg): 86 Stage: REST Duration (min): 3 min : 45 sec HR (bpm): 77 SBP (mmHg): 148 DBP (mmHg): 86 Stage: STAGE 1 Duration (min): 0 min : 59 sec HR (bpm): 92 SBP (mmHg): 143 DBP (mmHg): 86 Stage: RECOVERY Duration (min): 1 min : 0 sec HR (bpm): 99 SBP (mmHg): 143 DBP (mmHg): 86 Stage: RECOVERY Duration (min): 2 min : 0 sec HR (bpm): 96 SBP (mmHg): 143 DBP (mmHg): 86 Stage: RECOVERY Duration (min): 3 min : 0 sec HR (bpm): 96 SBP (mmHg): 136 DBP (mmHg): 83 Stage: RECOVERY Duration (min): 3 min : 22 sec HR (bpm): 94 SBP (mmHg): 136 DBP (mmHg): 83 Rest HR: 77 bpm Peak HR: 99 bpm Rest Sys BP: 148 mmHg Peak Sys BP: 143 mmHg Max Pred HR: 142 bpm % Max Pred HR: 70 % Target HR: 121 bpm Max RPP: 14,157 bpm*mmHg Termination Reason: Completed protocol Cardiac Symptoms: Shortness of breath Total Time: 1 min : 0 sec Rest Salazar BP: 86 mmHg Peak Salazar BP: 86 mmHg Total Dose: 0.4 mg Resting ECG Sinus rhythm. Stress ECG No ST changes. Arrhythmias None. Report Signatures
== END 2025-07-10 07:22 | disposition home or self-care (01) ==
PROVIDERS: PCP Family Medicine Adolescent Medicine; Visit Provider Nurse Practitioner Family
DX: R07.9 Chest pain, unspecified (principal); R06.09 Other forms of dyspnea
CPT/HCPCS: 78452; 93017; A9502; J2785

== ENCOUNTER 2025-08-07 11:52 | Outpatient (CLI) | payer MEDICARE, SELFPAY ==
--- NOTE | ~2025-08-07 | XR_ITS ---
EXAMINATION: XR abdomen/kub 1V, 08/07/2025 12:10 [employer] HISTORY: diarrhea, mild pelvic pain COMPARISON: No comparisons available. Technique: 3 view. Findings: Bowel gas pattern unremarkable. No obstruction. No free air. No abnormal calcifications No acute osseous abnormality. Impression: 1. No acute abnormality. Reviewed, dictated and finalized at location P. [employer] Impression: 1. No acute abnormality.
[2025-08-07 12:36] LABS: Hematocrit 38.8 % (37.0-47.0); Hemoglobin 12.8 g/dL (12.0-15.0); Mean Corpuscular HGB Conc 33.0 g/dl (32-36); Mean Corpuscular Hemoglobin 32.7 pg (26-34); Mean Corpuscular Volume 99.2 fl (80-100); Platelet Count Result 333 k/mm3 (150-375); Red Blood Count 3.91 M/mm3 (4.2-5.4); White Blood Count 7.4 K/mm3 (4.5-10.0)
[2025-08-07 12:57] LABS: Alanine Aminotransferase 26 U/L (6-35); Albumin Level 4.7 g/dL (3.5-5.1); Alkaline Phosphatase 81 U/L (38-126); Anion Gap 8 mmol/L (4-12); Aspartate Amino Transferase 36 U/L (14-36); Bilirubin,Total 0.7 mg/dL (0.2-1.3); Blood Urea Nitrogen 12 mg/dL (7-17); CRP < 0.5 mg/dL (<1.0); Calcium 10.1 mg/dL (8.4-10.2); Carbon Dioxide 26 mmol/L (22-30); Chloride 104 mmol/L (98-107); Estimated Glomerular Filt Rate 50; Glucose 102 mg/dL (65-110); Potassium 4.0 mmol/L (3.4-5.0); Sodium 138 mmol/L (137-145); Total Protein 8.2 g/dL (6.3-8.2)
[2025-08-07 13:20] LABS: Thyroid Stimulating Hormone 1.890 uIU/mL (0.465-4.680)
--- OUTSIDE RECORDS SUMMARY | 2025-08-07 14:37 | XMS_ITS | Clinical Summary ---
Author Organization [facility] Address [address] [place] [address] Care Team Providers Care Filtering Machine Tender Helper Name Role Phone Brain Overton MD Primary Care Provider [phone]- [phone] Allergies No known active allergies Medications ALPRAZolam [...] (deep venous thrombosis) 02/13/2022 Acute diverticulitis 02/13/2022 Social History Tobacco Use Types Packs/Day Years [...] week 02/13/2022 How often do you attend chur or anabaptist services? More than 4 times per year 02/13/2022 Do you belong to any clubs o r organizations such as voodoo groups, unions, fraternal or athletic groups, or [...] move on to questions 3-9 0 02/13/2022 [facility] Occupat ional Health - Occupational Stress [...] place to sleep or slept in a nursing home (including now)? No 02/13/2022 Comments No Sex [...] of home safety measures General No Jeri Mccall [place] [address] Advance Directives * DNR (Latest Code Status on File) Date Activated Date Inactivated Comments 02/13/2022 1:12 PM 02/15/2022 7:42 PM * Full Code Date Activated Date Inactivated Comments 02/13/2022 12:13 PM 02/13/2022 1:12 PM Care Teams Filtering Machine Tender Helper Relationship Specialty Start Date End Date Brain Overton MD [address] [address] PCP - General FAMILY PRACTICE 02/13/22
[2025-08-08 16:08] LABS: Deamidated Gliadin Abs, IgA 5 units (0-19); Deamidated Gliadin Abs, IgG 4 units (0-19); Immunoglobulin A, Qn 247 mg/dL (64-422)
== END 2025-08-07 11:53 | disposition home or self-care (01) ==
PROVIDERS: PCP Family Medicine Adolescent Medicine; Visit Provider Nurse Practitioner Family
DX: R19.7 Diarrhea, unspecified (principal); R19.4 Change in bowel habit
CPT/HCPCS: 36415; 74018; 80053; 82784; 84443; 85027; 85652; 86140; 86231; 86258

== ENCOUNTER 2025-08-11 10:19 | Outpatient (CLI) | payer MEDICARE, SELFPAY | END 2025-08-11 10:20 | disposition home or self-care (01) | LOC: ANHLAB 10:21 | PROVIDERS: PCP Family Medicine Adolescent Medicine; Visit Provider Family Medicine Adolescent Medicine | DX: R19.7 Diarrhea, unspecified (principal); R19.4 Change in bowel habit | CPT/HCPCS: 87045; 87046; 87427 ==